=== PATIENT | female | born 1930 | race Caucasian/White ===

== ENCOUNTER 2018-07-07 18:26 | Observation (INO) | payer OTHER, MEDICARE ==
[2018-07-07 22:15] LABS: Absolute Lymphocytes (CBC) 1.3 K/uL (0.7-4.9); Absolute Monocytes 0.6 K/uL (0.1-1.3); Absolute Neutrophil 4.9 K/uL (1.8-8.0); Eosinophils % 1.9 % (0-4.4); Hematocrit 38.8 % (36.0-45.0); Lymphocytes % 18.8 % (15.3-44.8); MPV 8.3 fL (7.6-11.3); RBC Red Blood Cell Count 4.57 M/uL (3.86-4.86)
[2018-07-07 22:21] LABS: Protime INR 1.18
[2018-07-07 22:38] LABS: ALT/SGPT 24 U/L (12-78); AST/SGOT 28 U/L (15-37); Albumin 3.2 g/dL (3.4-5.0); Alkaline Phosphatase 114 U/L (45-117); BUN Blood Urea Nitrogen 19 mg/dL (7-18); Bicarbonate 29 mmol/L (21-32); Bilirubin Direct 0.2 mg/dL (0-0.2); Bilirubin Total 0.7 mg/dL (0.2-1.0); Glucose Level 96 mg/dL (74-106); Lipase 136 U/L (73-393); Magnesium 1.8 mg/dL (1.8-2.4); NT PRO-BNP 373 pg/mL (<450); Potassium 3.8 mmol/L (3.5-5.1); Protein, Total 6.5 g/dL (6.4-8.2); Sodium Level 142 mmol/L (136-145); Troponin (Emerg Dept Use Only) < 0.02 ng/mL (0.0-0.045)
[2018-07-07] MEDS ORDERED: CEFTRIAXONE/SWI 1gm 1 GM/10 ML SYR ONE (22:56)
[2018-07-07 23:09] LABS: Urine Blood TRACE (NEG); Urine Glucose NEGATIVE (NEG); Urine Protein 1+ (NEG); Urine Specific Gravity 1.025 (1.005-1.030); Urine pH 5.5 (5.0-7.0)
--- NOTE | 2018-07-07 23:30 | ER ---
Nurse's Notes [facility] Name: Mila Johnson Age: 87 yrs Sex: Female : 1930 Arrival Date: 07/07/2018 Time: 18:29 Bed 14 Private MD: Elijah Iyer Diagnosis: Essential (primary) hypertension;Dyspnea;Ruucqugkw-exeo-gz-bud lingula;Nausea and vomiting;Cystitis;Congenital hiatus hernia-large Presentation: 07/07 18:34 Presenting complaint: Concerned about home SBP 200. Pt also reports diarrhea yesterday, hb vomit x 1 today, now feels "wore out.". Transition of care: patient was not received from another setting of care. Onset of symptoms was July 07, 2018. Risk Assessment: Do you want to hurt yourself or someone else? Patient reports no desire to harm self or others. Initial Sepsis Screen: Does the patient meet any 2 criteria? No. Patient's initial sepsis screen is negative. Does the patient have a suspected source of infection? No. Patient's initial sepsis screen is negative. Care prior to arrival: None. 18:34 Method Of Arrival: Wheelchair hb 18:34 Acuity: ROSARIO 3 hb Historical: - Allergies: 18:35 PENICILLINS; hb - Immunization history:: Adult Immunizations up to date. - Social history:: Smoking status: Patient/guardian denies using tobacco. - Ebola Screening: : No symptoms or risks identified at this time. - Family history:: not pertinent. Screenin:10 Abuse screen: Denies threats or abuse. Nutritional screening: No deficits noted. jb4 Tuberculosis screening: No symptoms or risk factors identified. Fall Risk None identified. Assessment: 19:10 General: Appears in no apparent distress. comfortable, Behavior is calm, cooperative, jb4 appropriate for age. Pain: Denies pain. Neuro: Level of Consciousness is awake, alert, obeys commands, Oriented to person, place, time, situation. Cardiovascular: Heart tones S1 S2 present Patient's skin is warm and dry. Respiratory: Airway is patent Respiratory effort is even, unlabored, Respiratory pattern is regular, symmetrical, Breath sounds with crackles bilaterally. GI: No signs and/or symptoms were reported involving the gastrointestinal system. : No signs and/or symptoms were reported regarding the genitourinary system. EENT: No signs and/or symptoms were reported regarding the EENT system. Derm: Skin is intact, Skin is pink, warm \\T\\ dry. Musculoskeletal: Circulation, motion, and sensation intact. 20:36 Reassessment: Patient appears in no apparent distress at this time. Patient and/or jb4 family updated on plan of care and expected duration. Pain level reassessed. Patient is alert, oriented x 3, equal unlabored respirations, skin warm/dry/pink. 21:30 Reassessment: Patient appears in no apparent distress at this time. Patient and/or jb4 family updated on plan of care and expected duration. Pain level reassessed. Patient is alert, oriented x 3, equal unlabored respirations, skin warm/dry/pink. 22:30 Reassessment: Patient appears in no apparent distress at this time. Patient and/or jb4 family updated on plan of care and expected duration. Pain level reassessed. Patient is alert, oriented x 3, equal unlabored respirations, skin warm/dry/pink. 23:30 Reassessment: Patient appears in no apparent distress at this time. Patient and/or jb4 family updated on plan of care and expected duration. Pain level reassessed. Patient is alert, oriented x 3, equal unlabored respirations, skin warm/dry/pink. Vital Signs: 18:35 BP 193 / 103; Pulse 64; Resp 16; Temp 97.8(TE); Pulse Ox 97% on R/A; Pain 0/10; hb 19:10 BP 155 / 82; Pulse 74; Resp 22; Pulse Ox 92% on R/A; jb4 20:00 BP 140 / 82; Pulse 76; Resp 24; Pulse Ox 92% on R/A; jb4 21:00 BP 149 / 84; Pulse 78; Resp 24; Pulse Ox 91% on R/A; jb4 22:00 BP 144 / 84; Pulse 88; Resp 25; Pulse Ox 96% on 2 lpm NC; jb4 22:45 BP 124 / 76; Pulse 79; Resp 22; Pulse Ox 98% on 2 lpm NC; jb4 23:45 BP 110 / 67; Pulse 86; Resp 18; Pulse Ox 96% on 2 lpm NC; jb4 07/08 00:30 BP 117 / 68; Pulse 80; Resp 24; Temp 97.8(O); Pulse Ox 94% on 2 lpm NC; jb4 ED Course: 07/07 18:29 Patient arrived in ED. sb2 18:29 Elijah Iyer MD is Private Physician. sb2 18:35 Triage completed. hb 18:35 Arm band placed on left wrist. hb 19:10 Patient has correct armband on for positive identification. Bed in low position. Call jb4 light in reach. Side rails up X 1. cost clerk on. Pulse ox on. NIBP on. 20:18 Tyron Fontanez, KENNETH is Primary Nurse. jb4 21:05 Jordan Trujillo MD is Attending Physician. [facility] 21:27 XRAY Chest (1 view) In Process Unspecified. EDMS 21:44 Inserted saline lock: 20 gauge in right antecubital area, using aseptic technique. tl2 Blood collected. placed by guillermina Stafford. 23:28 Elijah Iyer MD is Hospitalizing Provider. [facility] 23:29 CT Chest Wo Con In Process Unspecified. EDAR 07/08 01:14 No provider procedures requiring assistance completed. Patient admitted, IV remains in jb4 place. Administered Medications: 07/07 22:51 Drug: Rocephin - (cefTRIAXone) 1 grams {Note: Given IVP per pharmacy protocol.} Route: jb4 IVPB; Infused Over: 30 mins; Site: right antecubital; 22:53 Follow up: Response: No adverse reaction; IV Status: Completed infusion [facility] 07/08 00:30 Drug: Pepcid 20 mg Route: IVP; Site: right antecubital; jb4 01:04 Follow up: Response: No adverse reaction jb4 00:51 Not Given (Other Intervention Used): Zithromax 500 mg IVPB once over 1 hrs; mix in 250 jb4 mL NS 00:52 Drug: Zithromax 500 mg Route: PO; jb4 01:04 Follow up: Response: No adverse reaction jb4 Outcome: 07/07 23:29 Decision to Hospitalize by Provider. [facility] 07/08 01:14 Admitted to Tele accompanied by guillermina, via wheelchair, room 408, with oxygen, with jb chart, Report called to KENNETH Martínez Condition: stable Discharge instructions given to patient, family, Instructed on the need for admit, Demonstrated understanding of instructions. 01:17 Patient left the ED. [facility] Signatures: Dispatcher MedHoJordan Neal MD MD cha Baxter, Heather, RN RN Tasha John, RN RN tl2 Tyron Fontanez, KENNETH RN jb4 Toña Waller sb2 Corrections: (The following items were deleted from the chart) 07/07 20:37 19:10 BP 155 / 82; Pulse 74bpm; Resp 16bpm; Pulse Ox 92% RA; jb4 jb4
--- NOTE | 2018-07-07 23:30 | EDPHYS ---
Physician Documentation [facility] Name: Mila Johnson Age: 87 yrs Sex: Female : 1930 Arrival Date: 07/07/2018 Time: 18:29 Bed 14 Private MD: Elijah Iyer ED Physician Jordan Trujillo HPI: 07/07 21:11 This 87 yrs old Female presents to ER via Wheelchair with complaints of High clem Blood Pressure. 21:11 The patient has elevated blood pressure and discovered this at home. Onset: The clem symptoms/episode began/occurred 1 day(s) ago. Modifying factors: The symptoms are aggravated by activity, The symptoms are alleviated by remaining still. Associated signs and symptoms: The patient has no apparent associated signs or symptoms. Severity of symptoms: At its worst the blood pressure was mild. The patient has not experienced similar symptoms in the past. Historical: - Allergies: 18:35 PENICILLINS; hb - Immunization history:: Adult Immunizations up to date. - Social history:: Smoking status: Patient/guardian denies using tobacco. - Ebola Screening: : No symptoms or risks identified at this time. - Family history:: not pertinent. ROS: 21:11 Constitutional: Negative for fever, chills, and weight loss, Eyes: Negative for injury, clem pain, redness, and discharge, ENT: Negative for injury, pain, and discharge, Neck: Negative for injury, pain, and swelling, Cardiovascular: Negative for chest pain, palpitations, and edema, Back: Negative for injury and pain, : Negative for injury, bleeding, discharge, and swelling, MS/Extremity: Negative for injury and deformity, Skin: Negative for injury, rash, and discoloration, Neuro: Negative for headache, weakness, numbness, tingling, and seizure, Psych: Negative for depression, anxiety, suicide ideation, homicidal ideation, and hallucinations, Allergy/Immunology: Negative for hives, rash, and allergies, Endocrine: Negative for neck swelling, polydipsia, polyuria, polyphagia, and marked weight changes, Hematologic/Lymphatic: Negative for swollen nodes, abnormal bleeding, and unusual bruising. 21:11 Respiratory: Positive for cough, shortness of breath, on exertion. 21:11 Abdomen/GI: Positive for nausea and vomiting. Exam: 21:11 Constitutional: This is a well developed, well nourished patient who is awake, alert, clem and in no acute distress. Head/Face: Normocephalic, atraumatic. Eyes: Pupils equal round and reactive to light, extra-ocular motions intact. Lids and lashes normal. Conjunctiva and sclera are non-icteric and not injected. Cornea within normal limits. Periorbital areas with no swelling, redness, or edema. ENT: Nares patent. No nasal discharge, no septal abnormalities noted. Tympanic membranes are normal and external auditory canals are clear. Oropharynx with no redness, swelling, or masses, exudates, or evidence of obstruction, uvula midline. Mucous membranes moist. Neck: Trachea midline, no thyromegaly or masses palpated, and no cervical lymphadenopathy. Supple, full range of motion without nuchal rigidity, or vertebral point tenderness. No Meningismus. Chest/axilla: Normal chest wall appearance and motion. Nontender with no deformity. No lesions are appreciated. Cardiovascular: Regular rate and rhythm with a normal S1 and S2. No gallops, murmurs, or rubs. Normal PMI, no JVD. No pulse deficits. Abdomen/GI: Soft, non-tender, with normal bowel sounds. No distension or tympany. No guarding or rebound. No evidence of tenderness throughout. Back: No spinal tenderness. No costovertebral tenderness. Full range of motion. Female : Normal external genitalia. Skin: Warm, dry with normal turgor. Normal color with no rashes, no lesions, and no evidence of cellulitis. MS/ Extremity: Pulses equal, no cyanosis. Neurovascular intact. Full, normal range of motion. Neuro: Awake and alert, GCS 15, oriented to person, place, time, and situation. Cranial nerves II-XII grossly intact. Motor strength 5/5 in all extremities. Sensory grossly intact. Cerebellar exam normal. Normal gait. Psych: Awake, alert, with orientation to person, place and time. Behavior, mood, and affect are within normal limits. 21:11 Respiratory: the patient does not display signs of respiratory distress, Respirations: normal, Breath sounds: rales, that are mild, are located in both bases. Vital Signs: 18:35 BP 193 / 103; Pulse 64; Resp 16; Temp 97.8(TE); Pulse Ox 97% on R/A; Pain 0/10; hb 19:10 BP 155 / 82; Pulse 74; Resp 22; Pulse Ox 92% on R/A; jb4 20:00 BP 140 / 82; Pulse 76; Resp 24; Pulse Ox 92% on R/A; jb4 21:00 BP 149 / 84; Pulse 78; Resp 24; Pulse Ox 91% on R/A; jb4 22:00 BP 144 / 84; Pulse 88; Resp 25; Pulse Ox 96% on 2 lpm NC; jb4 22:45 BP 124 / 76; Pulse 79; Resp 22; Pulse Ox 98% on 2 lpm NC; jb4 23:45 BP 110 / 67; Pulse 86; Resp 18; Pulse Ox 96% on 2 lpm NC; jb4 07/08 00:30 BP 117 / 68; Pulse 80; Resp 24; Temp 97.8(O); Pulse Ox 94% on 2 lpm NC; jb4 MDM: 07/07 21:05 Patient medically screened. [facility] 21:12 Data reviewed: vital signs, nurses notes, lab test result(s), EKG, radiologic studies, clem plain films. 07/07 21:06 Order name: Basic Metabolic Panel [facility] 07/07 21:06 Order name: CBC with Diff [facility] 07/07 21:06 Order name: LFT's [facility] 07/07 21:06 Order name: Magnesium [facility] 07/07 21:06 Order name: NT PRO-BNP [facility] 07/07 21:06 Order name: PT-INR; Complete Time: 22:32 [facility] 07/07 21:06 Order name: Troponin (emerg Dept Use Only); Complete Time: 22:40 [facility] 07/07 21:06 Order name: Urine Culture [facility] 07/07 21:06 Order name: Basic Metabolic Panel; Complete Time: 22:40 EDMS 07/07 21:06 Order name: CBC with Automated Diff; Complete Time: 22:32 EDMS 07/07 21:06 Order name: Liver (Hepatic) Function; Complete Time: 22:40 EDMS 07/07 21:06 Order name: Magnesium; Complete Time: 22:40 EDMS 07/07 21:06 Order name: NT PRO-BNP; Complete Time: 22:40 EDMS 07/07 21:06 Order name: XRAY Chest (1 view) [facility] 07/07 21:06 Order name: EKG; Complete Time: 21:07 [facility] 02/10 21:06 Order name: Cardiac monitoring; Complete Time: 21:57 [facility] 07/07 21:06 Order name: EKG - Nurse/Tech; Complete Time: 21:57 [facility] 07/07 21:06 Order name: IV Saline Lock; Complete Time: 21:57 [facility] 07/07 21:06 Order name: Labs collected and sent; Complete Time: 21:57 [facility] 07/07 21:06 Order name: O2 Per Protocol; Complete Time: 21:57 [facility] 07/07 21:11 Order name: Blood Culture Adult (2) [facility] 07/07 21:11 Order name: Procalcitonin; Complete Time: 23:24 [facility] 07/07 22:10 Order name: Lipase; Complete Time: 22:40 EDMS 07/07 22:33 Order name: CT Chest Wo Con [facility] 07/07 22:57 Order name: Urine Dipstick--Ancillary (enter results); Complete Time: 23:24 ar5 07/07 21:06 Order name: O2 Sat Monitoring; Complete Time: 21:57 [facility] 07/07 21:06 Order name: Urine Dipstick-Ancillary (obtain specimen); Complete Time: 22:42 [facility] Administered Medications: 22:51 Drug: Rocephin - (cefTRIAXone) 1 grams {Note: Given IVP per pharmacy protocol.} Route: jb4 IVPB; Infused Over: 30 mins; Site: right antecubital; 22:53 Follow up: Response: No adverse reaction; IV Status: Completed infusion 4 07/08 00:30 Drug: Pepcid 20 mg Route: IVP; Site: right antecubital; jb4 01:04 Follow up: Response: No adverse reaction jb4 00:51 Not Given (Other Intervention Used): Zithromax 500 mg IVPB once over 1 hrs; mix in 250 jb4 mL NS 00:52 Drug: Zithromax 500 mg Route: PO; jb4 01:04 Follow up: Response: No adverse reaction 4 Disposition: 07/07/18 23:29 Hospitalization ordered by Elijah Iyer for Observation. Preliminary diagnosis are Essential (primary) hypertension, Dyspnea, Hypoxemia - tree-in-bud lingula, Nausea and vomiting, Cystitis, Congenital hiatus hernia - large. - Bed requested for Telemetry/MedSurg (observation). - Status is Observation. jb4 - Condition is Fair. - Problem is new. - Symptoms have improved. UTI on Admission? Yes Signatures: Dispatcher [employer] [facility] Sarah Holm, RN Jordan Broussard MD MD cha Baxter, Heather, RN Tyron Welch RN RN jb4 Corrections: (The following items were deleted from the chart) 07/07 22:10 21:11 LIPASE+C.LAB.BRZ ordered. EDMD EDMD 23:45 23:29 Hospitalization Ordered by Elijah Iyer MD for Observation. Preliminary diagnosis kl is Essential (primary) hypertension; Dyspnea; Hypoxemia; Nausea and vomiting; Cystitis. Bed requested for Telemetry/MedSurg (observation). Status is Observation. Condition is Fair. Problem is new. Symptoms have improved. UTI on Admission? Yes. clem 07/08 00:16 02 23:45 07/07/2018 23:29 Hospitalization Ordered by Elijah Iyer MD for Observation. clem Preliminary diagnosis is Essential (primary) hypertension; Dyspnea; Hypoxemia; Nausea and vomiting; Cystitis. Bed requested for Telemetry/MedSurg (observation). Status is Observation. Condition is Fair. Problem is new. Symptoms have improved. UTI on Admission? Yes. brianna 07/08 01:17 00:16 07/07/2018 23:29 Hospitalization Ordered by Elijah Iyer MD for Observation. jb4 Preliminary diagnosis is Essential (primary) hypertension; Dyspnea; Hypoxemia - tree-in-bud lingula; Nausea and vomiting; Cystitis; Congenital hiatus hernia - large. Bed requested for Telemetry/MedSurg (observation). Status is Observation. Condition is Fair. Problem is new. Symptoms have improved. UTI on Admission? Yes. clem
[2018-07-08] MEDS ORDERED: FAMOTIDINE 20 MG/2 ML VIAL IV ONE (00:36)
[2018-07-08] MEDS ORDERED: AZITHROMYCIN 250 MG TAB ONE (00:59)
[2018-07-08] MEDS ORDERED: ACETAMINOPHEN 500 MG TAB PO PRN (01:35)
[2018-07-08] MEDS ORDERED: ONDANSETRON 4 MG/2 ML VIAL IV PRN (01:35)
[2018-07-08 02:28] VITALS: BMI 22.7
[2018-07-08 05:24] LABS: Absolute Lymphocytes (CBC) 1.2 K/uL (0.7-4.9); Absolute Monocytes 0.5 K/uL (0.1-1.3); Basophils % 0.8 % (0-1.3); Eosinophils % 2.7 % (0-4.4); Hematocrit 35.3 % (36.0-45.0); Lymphocytes % 24.1 % (15.3-44.8); MPV 9.5 fL (7.6-11.3); Monocytes % 10.7 % (3.3-12.3); RBC Red Blood Cell Count 4.19 M/uL (3.86-4.86)
[2018-07-08 05:29] LABS: Potassium 3.8 mmol/L (3.5-5.1)
--- NOTE | 2018-07-08 06:53 | RAD REPORT ---
EXAM DESCRIPTION: RAD - Chest Single View - 07/08/2018 6:01 am CLINICAL HISTORY: Chest pain COMPARISON: CT chest July 07, portable chest July 07 TECHNIQUE: AP portable chest image was obtained 0555 hours . FINDINGS: Lungs are underinflated similar comparison. Large mass density retrocardiac left base is k nown hiatal hernia. Interstitial markings are stable. No new or progressive lung parenchymal process. Heart and vasculature are normal. No measurable pleural effusion and no pneumothorax. No acute bony abnormality seen. No acute aortic findings suspected. IMPRESSION: Stable chest examination from prior day.
--- NOTE | 2018-07-08 07:21 | EKG ---
Test Date: 2018-07-07 Test Time: 21:13:56 Activities Counselor: BRIA MEASUREMENT RESULTS: Intervals: Rate: 75 RI: 192 QRSD: 80 QT: 398 QTc: 444 [place]: P: 58 RI: 192 QRS: 42 T: 61 INTERPRETIVE STATEMENTS: Normal sinus rhythm Normal ECG Compared to ECG 10/09/2012 19:34:52 Sinus tachycardia no longer present Atrial premature complex(es) no longer present ST (T wave) deviation no longer present Electronically Signed On 07-08-18 07:20:36 FUEL RETROFITTING TECHNICIAN by Osvaldo Vinson
--- NOTE | 2018-07-08 08:18 | RAD REPORT ---
EXAM DESCRIPTION: RAD - Chest Single View - 07/07/2018 9:26 pm CLINICAL HISTORY: Cough, hypertension COMPARISON: January 2015 TECHNIQUE: AP portable chest image was obtained 3 hours . FINDINGS: Lung volumes are low. Large hiatal hernia fills the retrocardiac medial left base. Interst itial markings are prominent but not clearly different from prior study. This shallow inspiration cou ld potentially mask earliest stages of an interstitial edema or infiltrate. Heart and vasculature are normal. No measurable pleural effusion and no pneumothorax. No acute bony abnormality seen. No acute aortic findings suspected. IMPRESSION: Shallow inspiration film showing chronic interstitial lung disease. This could potential ly mask early infiltrates.
[2018-07-08 08:53] LABS: Folic Acid, (Folate) > 20.0 ng/mL (3.1-17.5)
[2018-07-08] MEDS: CEFTRIAXONE/SWI 1gm 1 GM/10 ML SYR IV SCH ×3 (09:00→20:47)
[2018-07-08] MEDS ORDERED: CEFTRIAXONE 1 GM/NS 50 ML 1 GM/50 ML BAG IV SCH (09:00)
[2018-07-08] MEDS: METOPROLOL TAR 25 MG TAB PO SCH (10:42)
[2018-07-08] MEDS: FERROUS SULFATE 325 MG TAB PO SCH (10:43)
[2018-07-08] MEDS: CODEINE 30MG/APAP 300MG TAB PO SCH (10:43)
[2018-07-08] MEDS: SERTRALINE HCL 100 MG TAB PO SCH (10:44)
[2018-07-08] MEDS: ASPIRIN EC 81 MG TAB PO SCH (10:44)
[2018-07-08] MEDS: PANTOPRAZOLE 40MG TABLET PO SCH (10:44)
--- NOTE | 2018-07-08 17:27 | EKG ---
Test Date: 2018-07-08 Test Time: 10:07:31 Respiratory Assistant: [place] MEASUREMENT RESULTS: Intervals: Rate: 73 VA: 190 QRSD: 80 QT: 408 QTc: 449 [place]: P: 58 VA: 190 QRS: 16 T: 34 INTERPRETIVE STATEMENTS: Normal sinus rhythm Normal ECG Compared to ECG 07/07/2018 21:13:56 No significant changes Electronically Signed On 07-08-18 17:26:42 SEED MILL SUPERINTENDENT by Osvaldo Vinson
[2018-07-08] MEDS ORDERED: CEFTRIAXONE/SWI 1gm 1 GM/10 ML SYR IV SCH (21:00)
--- NOTE | 2018-07-09 03:35 | HP ---
Date of Admission: 07/08/2018 Chief Complaint: Nausea. History Of Present Illness: This is an 87-year-old female patient who came in to emergency room with complaints of nausea. She had some associated vomiting. Denies any fever or chills. Has some disc omfort in the suprapubic area that she reported with some burning on urination. After she came in to emergency room, she was evaluated and admitted to the hospital with urinary tract infection. Allergies: TO PENICILLIN AND TRAMADOL. Medications: List reviewed. Review of Systems: Gastrointestinal: As mentioned above. Genitourinary: As mentioned above. All other systems are reviewed and negative. Social History: Negative for smoking and alcohol use. Family History: Significant for mother had lymphoma. Brother and father had ataxia. Past Surgical History: Significant for cataract surgery, cholecystectomy, left-sided mastectomy in 2 010 for breast cancer, tonsillectomy, hip replacement in 1998, and cholecystectomy in 1996. Past Medical History: Significant for hypertension, hyperlipidemia, breast cancer, osteoarthritis, d epression, and iron-deficiency anemia. Physical Examination: Vital Signs: Temperature 97.1, pulse 79, respiratory rate 20, blood pressure 145/64, oxygen saturati on 93%, height 5 feet 7 inches, and weight 145 pounds. General: Awake, alert, oriented, not in distress. HEENT: Head atraumatic, normocephalic. Conjunctivae nonerythematous. Sclerae white. Mouth, no thr ush or edema noted. Ears/Nose, no mass, lesion, discharge noted. Neck: Supple. No JVD, lymph nodes, bruit, thyromegaly noted. Lungs: Bilateral good equal air entry. Clear to auscultation. No rhonchi. No rales. Heart: Normal heart sounds, no murmur or gallop. Abdomen: Soft, bowel sounds normal. No guarding, rigidity, tenderness, mass, hepatosplenomegaly, dis tention, or bruit noted. Extremities: No leg edema. No calf tenderness. Skin: No rash, ulcer, cellulitis. Lymphatics: No lymph node enlargement in neck, supraclavicular, infraclavicular region. Neuro: No focal neurological deficit. Chest: Unremarkable. External Genitalia: Deferred. Rectal: Deferred. Laboratory Data: Yesterday, white count 7, hemoglobin 12.8, and platelets 116. This morning, white count 4.9, hemoglobin 11.9, and platelets 115. Yesterday, sodium 142, potassium 3.8, chloride 106, b icarb 29, BUN 19, creatinine 0.70, and glucose 96. Liver function tests unremarkable. Troponin less than 0.02. Procalcitonin less than 0.05. This morning, sodium 142, potassium 3.8, chloride 107, bi carb 30, BUN 20, creatinine 0.76, and glucose 93. Urinalysis positive for nitrite, leukocyte esteras e 3+, and 1+ protein. CAT scan results reviewed. Impression: 1.Urinary tract infection. 2.Thrombocytopenia. 3.Iron-deficiency anemia. 4.Hypertension. 5.Hyperlipidemia. 6.Breast cancer. 7.Osteoarthritis, multiple sites. 8.Depression. Plan: Admit the patient to hospital for further evaluation and management of this problem. The stanislav ent is appropriate for inpatient and is expected to spend 2 midnights in the hospital. We will sohail nue IV antibiotic which is ceftriaxone, follow up on urine culture, and decide about culture-specific antibiotic once the final result is available. We will get B12 and folic acid level checked and con tinue home medications per order. SCD was ordered for DVT prophylaxis. Fall precautions were ordered. Plan of treatment was discussed with her. I will see h er tomorrow for followup. TOBIAS/KEZIA Voice ID: [id number]
[2018-07-09] MEDS: CODEINE 30MG/APAP 300MG TAB PO SCH (09:00)
[2018-07-09] MEDS: CEFTRIAXONE/SWI 1gm 1 GM/10 ML SYR IV SCH (09:11)
[2018-07-09] MEDS: FERROUS SULFATE 325 MG TAB PO SCH (09:11)
[2018-07-09] MEDS: SERTRALINE HCL 100 MG TAB PO SCH (09:12)
[2018-07-09] MEDS: PANTOPRAZOLE 40MG TABLET PO SCH (09:12)
[2018-07-09] MEDS: ASPIRIN EC 81 MG TAB PO SCH (09:13)
[2018-07-09] MEDS: METOPROLOL TAR 25 MG TAB PO SCH (09:13)
[2018-07-09 10:23] VITALS: O2SAT 94
--- NOTE | 2018-07-09 12:04 | RAD REPORT ---
EXAM DESCRIPTION: CT - Thorax Wo Con - 07/08/2018 2:10 am CLINICAL HISTORY: The patient is 87 years old and is Female; inf vs mass vs hh COMPARISON: None. TECHNIQUE: Axial computed tomography images of the chest without intravenous contrast. Sagittal and coronal refo rmatted images were created and reviewed. This CT exam was performed using one or more of the followi ng dose reduction techniques: Automated exposure control, adjustment of the mA and/or kV according to patient size, and/or use of iterative reconstruction technique. FINDINGS: LUNGS: Unremarkable. No mass. No consolidation. PLEURAL SPACE: Tree-in-bud opacity in the lingula (series 201, image 28). No consolidation, pleural e ffusion or pneumothorax HEART: Heart is normal in size. No pericardial effusion. THYROID: 9 mm left thyroid nodule posteriorly. BONES/JOINTS: Advanced diffuse osteopenia. Multilevel degenerative disc disease and reactive endplate changes. No acute fracture. No dislocation. SOFT TISSUES: Surgical clips are seen in the left axilla. 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 Mural calcifications of the aortic arch. LYMPH NODES: No mediastinal or hilar lymphadenopathy. LIVER: 1.3 cm simple appearing left hepatic hypodensity, likely cyst. GALLBLADDER AND JORGE DUCTS: Prior cholecystectomy. INTRAPERITONEAL SPACE: Large fluid-filled hiatal hernia. OTHER FINDINGS: The visualized abdomen demonstrates no acute abnormality. IMPRESSION: 1. No acute intrathoracic abnormality. 2. Ectatic dilatation of the ascending aorta measuring up to 3.9 cm. 3. Trace tree-in-bud opacities in the lingula, nonspecific small airway disease. Follow-up is recomme nded. 4. Large hiatal hernia with superior migration of the entire stomach including pylorus. 5. Advanced diffuse osteopenia and degenerative disc disease. 6. Left axillary postsurgical changes. 7. 1.3 cm left hepatic cyst. 8. 9 mm left thyroid nodule. No follow-up is clinically warranted given patient age. Reference: J Am Maria L Radiol 2015 Jun;12(2): 143-50 Electronically signed by Jason Bernabe DO 07/07/2018 11:40 PM FORESTRY TECHNICAL OFFICER Due to temporary technical issues with the PACS/Fluency reporting system, reports are being signed by the in house radiologist as a courtesy to ensure prompt reporting. The interpreting radiologist is f ully responsible for the content of the report.
[2018-07-09 12:11] VITALS: BP 104/52; TEMP 97.9
--- NOTE | 2018-07-10 06:27 | DS ---
Date of Discharge: 07/09/2018 Disposition: Discharged to go home. Physical Examination: HEENT: Unremarkable. Lungs: Clear to auscultation. No rhonchi. No rales. Heart: Sounds normal. Abdomen: Soft. Bowel sounds normal. No guarding, rigidity, tenderness, distention. Extremities: No leg edema. Discharge Medications And Instructions: 1.Continue all prior home medications. 2.Take Bactrim DS 1 tablet twice a day for 1 week. 3.Follow up at my office per scheduled appointment. Hospital Course: An 87-year-old female patient who came into emergency room, and after she was evalu ated, she was admitted to the hospital with urinary tract infection problem. Please see dictated H a nd P for more information. Her initial white count was 7, hemoglobin 12.8, platelets 116. Repeat ite count 4.9, hemoglobin 11.9, platelets 115. Her urinalysis was abnormal consistent with urinary t ract infection, but urine culture final results came back today more than 100,000 mixed aron. Chemi stry was unremarkable. Troponin less than 0.02. Procalcitonin less than 0.05. The patient was give n IV antibiotic, which was ceftriaxone, and today after final report on the urine culture came back, she was discharged to go home in stable condition. Final Diagnoses: 1.Urinary tract infection. 2.Anemia, iron deficiency anemia. 3.Hypertension. 4.Hyperlipidemia. 5.Osteoarthritis, multiple sites. 6.Left breast cancer. TOBIAS/MODL Voice ID: [id number] Report ID: [id number]
== END 2018-07-09 13:56 | disposition home or self-care (01) ==
LOC: ER 18:26 → ERHOLD 23:33 → 4TH 07-08 01:02
PROVIDERS: ADMIT Internal Medicine; ATTEND Internal Medicine
DX: N39.0 Urinary tract infection, site not specified (principal); D50.9 Iron deficiency anemia, unspecified; I10 Essential (primary) hypertension; E78.5 Hyperlipidemia, unspecified; M19.90 Unspecified osteoarthritis, unspecified site; Z88.0 Allergy status to penicillin; Z85.3 Personal history of malignant neoplasm of breast
CPT/HCPCS: 36415; 71045 ×2; 71250; 80048 ×2; 80076; 81003; 82607; 82746; 83690; 83735; 83880; 84145; 84484 ×3; 85025 ×2; 85610; 87040 ×2; 87086; 87088; 93005 ×2; 96374; 96375; 99285; G0378 ×2; J0696 ×4

== ENCOUNTER 2018-11-11 11:29 | Observation (INO) | payer OTHER, MEDICARE ==
--- NOTE | 2018-11-11 12:36 | EKG ---
Test Date: 2018-11-11 Test Time: 11:42:44 Qa Consultant: ALFIE MEASUREMENT RESULTS: Intervals: Rate: 85 AK: 178 QRSD: 82 QT: 372 QTc: 442 [place]: P: 59 AK: 178 QRS: 95 T: 80 INTERPRETIVE STATEMENTS: Normal sinus rhythm Rightward axis Possible Anterior infarct, age undetermined Abnormal ECG Compared to ECG 07/08/2018 10:07:31 Right-axis deviation now present Myocardial infarct finding now present Electronically Signed On 11-11-18 12:35:57 CDT by Osvaldo Vinson
[2018-11-11 12:39] LABS: Absolute Lymphocytes (CBC) 0.8 K/uL (0.7-4.9); Basophils % 0.8 % (0-1.3); Eosinophils % 0.7 % (0-4.4); Hematocrit 36.7 % (36.0-45.0); Lymphocytes % 14.5 % (15.3-44.8); MPV 8.7 fL (7.6-11.3); Monocytes % 10.4 % (3.3-12.3)
[2018-11-11 12:47] LABS: Protime INR 1.12
[2018-11-11] MEDS ORDERED: ACETAMINOPHEN 500 MG TAB ONE (12:50)
--- NOTE | 2018-11-11 12:59 | RAD REPORT ---
EXAM DESCRIPTION: CT - CTHCSPWOC - 11/11/2018 12:49 pm CLINICAL HISTORY: Trauma, head and neck injury. fall, AMS COMPARISON: No comparisons TECHNIQUE: Axial 5 mm thick images of the head were obtained. Axial 2 mm thick images of the cervical spine were obtained with sagittal and coronal reconstruction images generated and reviewed. All CT scans are performed using dose optimization technique as appropriate and may include automated exposure control or mA/KV adjustment according to patient size. FINDINGS: CT HEAD WITHOUT CONTRAST: No acute hemorrhage, hydrocephalus or extra-axial collection is identified.Advanced generalized brain atrophy is present with mild periventricular and deep white matter chronic microvascular ischemic ch anges.No areas of brain edema or midline shift. The paranasal sinuses and mastoids are clear.The calvarium is intact. CT CERVICAL SPINE WITHOUT CONTRAST: No fracture or subluxation.2 mm degenerative anterolisthesis of C4 on 5. Prominent facet arthrosis is noted involving the lower cervical levels.No prevertebral soft tissues swelling is identified. IMPRESSION: No acute intracranial or cervical spine findings. Moderate lower cervical degenerative changes.
[2018-11-11 13:17] LABS: ALT/SGPT 405 U/L (12-78); Albumin 3.3 g/dL (3.4-5.0); Alkaline Phosphatase 245 U/L (45-117); BUN Blood Urea Nitrogen 16 mg/dL (7-18); Bicarbonate 32 mmol/L (21-32); Bilirubin Direct 0.6 mg/dL (0-0.2); Bilirubin Total 1.1 mg/dL (0.2-1.0); Glucose Level 113 mg/dL (74-106); Magnesium 2.1 mg/dL (1.8-2.4); NT PRO-BNP 750 pg/mL (<450); Protein, Total 6.6 g/dL (6.4-8.2); Sodium Level 137 mmol/L (136-145); Troponin (Emerg Dept Use Only) < 0.02 ng/mL (0.0-0.045)
[2018-11-11 13:21] LABS: AST/SGOT 473 U/L (15-37)
--- NOTE | 2018-11-11 13:28 | RAD REPORT ---
EXAM DESCRIPTION: RAD - Humerus Right - 11/11/2018 1:08 pm CLINICAL HISTORY: Right arm pain FINDINGS: Mildly displaced fracture involves the right humeral neck. Fracture appears to extend int o the right humeral head. Osteoporosis
--- NOTE | 2018-11-11 13:29 | RAD REPORT ---
EXAM DESCRIPTION: RAD - Pelvis - 11/11/2018 1:07 pm CLINICAL HISTORY: Pelvic pain FINDINGS: No fracture or dislocation is seen. Osteoporosis Right hip arthroplasty has been performed. The acetabular component of the prosthesis has an almost c ompletely vertical orientation with respect to the right.
--- NOTE | 2018-11-11 13:30 | RAD REPORT ---
EXAM DESCRIPTION: Teresa Single View11/11/2018 1:08 pm CLINICAL HISTORY: Chest pain COMPARISON: June 2018 FINDINGS: The lungs appear clear of acute infiltrate. The heart is normal size. The right humeral f racture is again demonstrated
--- NOTE | 2018-11-11 14:05 | RAD REPORT ---
EXAM DESCRIPTION: CT - Abdomen Pelvis Wo Contrast - 11/11/2018 1:48 pm CLINICAL HISTORY: Abdominal pain COMPARISON: 2014 TECHNIQUE: Computed axial tomography of the abdomen and pelvis was obtained. IV and oral contrast we re not requested. All CT scans are performed using dose optimization technique as appropriate and may include automated exposure control or mA/KV adjustment according to patient size. FINDINGS: The evaluation of solid organs, vessels and bowel is limited secondary to the lack of con trast administration. Moderate hiatal hernia Small hepatic cysts. Spleen measures 14 centimeters. Cholecystectomy. Prominence of the biliary tree is unchanged. Left renal cyst Adrenals and right kidney grossly normal Pancreas grossly normal Diverticulosis without evidence of diverticulitis. Air within the bladder may secondary to recent ins trumentation Spondylosis involves lumbar spine resulting in spinal stenosis IMPRESSION: No acute abnormality is displayed.
--- NOTE | 2018-11-11 14:28 | RAD REPORT ---
EXAM DESCRIPTION: US - Abdomen Exam Limited - 11/11/2018 2:11 pm CLINICAL HISTORY: Abdominal pain. COMPARISON: 2015 FINDINGS: Cholecystectomy. Common bile duct measures 14 millimeters and is unchanged in caliber from the prior exam Hepatopetal flow. Small hepatic cysts. Normal hepatic echotexture IMPRESSION: Cholecystectomy Stable dilatation of the common bile duct may be physiologic in this elderly patient status post chol ecystectomy. If the patient has clinical symptoms/abnormal liver function test enzymes to suggest litzy iary pathology then MRCP would be recommended
--- NOTE | 2018-11-11 15:15 | EDPHYS ---
Physician Documentation [facility] Name: Mila Johnson Age: 87 yrs Sex: Female : 1930 Arrival Date: 11/11/2018 Time: 11:33 Bed 4 Private MD: Elijah Iyer ED Physician Yash Lopez HPI: 11/11 14:19 This 87 yrs old Female presents to ER via Wheelchair with complaints of Arm wa Pain, Chest Pain. 14:19 The patient or guardian complains of pain, that is acute, bruising. The complaints wa affect the right bicep and right tricep. Context: The problem was sustained at an unknown location, resulted from unknown cause, per pt's daughter, noted R upper arm pain and discoloration x 2 days. also states pt a bit more somnolent that usual. takes trazodone for sleep however. pt denies chest pain or SOB to me, c/o R upper arm pain. Onset: The symptoms/episode began/occurred 2 day(s) ago. Treatment prior to arrival includes: no previous treatment. Modifying factors: The symptoms are alleviated by nothing. the symptoms are aggravated by movement. Associated signs and symptoms: Pertinent positives: erythema, pain, swelling, warmth, of the right upper arm, Pertinent negatives: decreased range of motion, fever, numbness, tingling. Severity of symptoms: At their worst the symptoms were moderate, in the emergency department the symptoms are unchanged. The patient has not experienced similar symptoms in the past. The patient has not recently seen a physician. Historical: - Allergies: 11:40 PENICILLINS; bp - Home Meds: 11:40 Unable to obtain [Active]; bp - PMHx: 11:40 ATOXIA; Hypertension; bp - Immunization history:: Adult Immunizations up to date. - Social history:: Smoking status: Patient/guardian denies using tobacco. - Ebola Screening: : No symptoms or risks identified at this time. - Family history:: not pertinent. - Hospitalizations: : No recent hospitalization is reported. ROS: 14:42 Constitutional: Negative for fever, chills, and weight loss, Eyes: Negative for injury, wa pain, redness, and discharge, ENT: Negative for injury, pain, and discharge, Neck: Negative for injury, pain, and swelling, Respiratory: Negative for shortness of breath, cough, wheezing, and pleuritic chest pain, Abdomen/GI: Negative for abdominal pain, nausea, vomiting, diarrhea, and constipation, Back: Negative for injury and pain, : Negative for injury, bleeding, discharge, and swelling. 14:42 Cardiovascular: Positive for chest pain, Negative for edema, orthopnea. 14:42 Respiratory: Negative for shortness of breath. 14:42 MS/extremity: Positive for ecchymosis, pain, tenderness, of the right bicep and right tricep. 14:43 Neuro: Positive for altered mental status, somnolence. wa 14:43 All other systems are negative. Exam: 14:44 Head/Face: Normocephalic, atraumatic. Eyes: Pupils equal round and reactive to light, wa extra-ocular motions intact. Lids and lashes normal. Conjunctiva and sclera are non-icteric and not injected. Cornea within normal limits. Periorbital areas with no swelling, redness, or edema. Neck: Trachea midline, no thyromegaly or masses palpated, and no cervical lymphadenopathy. Supple, full range of motion without nuchal rigidity, or vertebral point tenderness. No Meningismus. Chest/axilla: Normal chest wall appearance and motion. Nontender with no deformity. No lesions are appreciated. Cardiovascular: Regular rate and rhythm with a normal S1 and S2. No gallops, murmurs, or rubs. Normal PMI, no JVD. No pulse deficits. Respiratory: Lungs have equal breath sounds bilaterally, clear to auscultation and percussion. No rales, rhonchi or wheezes noted. No increased work of breathing, no retractions or nasal flaring. Abdomen/GI: Soft, non-tender, with normal bowel sounds. No distension or tympany. No guarding or rebound. No evidence of tenderness throughout. Back: No spinal tenderness. No costovertebral tenderness. Full range of motion. 14:44 Constitutional: The patient appears mildly drowsy but answers questions appropriately. 14:44 ENT: Mouth: Oral mucosa: dry. 14:44 Musculoskeletal/extremity: Extremities: grossly normal except: noted in the right bicep and right tricep: ecchymosis, pain, tenderness. 14:44 Skin: injury, deep bruise noted R upper arm. tender to palp. no deformity. Vital Signs: 11:40 BP 107 / 65; Pulse 86; Resp 14; Temp 97; Pulse Ox 88% on R/A; Weight 54.43 kg; bp 13:16 BP 131 / 89; Pulse 78; Resp 14; Pulse Ox 92% on 2 lpm NC; tw2 14:23 BP 109 / 65; Pulse 76; Resp 17; Pulse Ox 96% on 2 lpm NC; tw2 16:38 BP 109 / 63; Pulse 73; Resp 20; Pulse Ox 98% on 2 lpm NC; tw2 17:21 BP 106 / 60; Pulse 68; Resp 19; Pulse Ox 96% on 2 lpm NC; tw2 Procedures: 15:09 Performed RUE sling placement: Sling place R upper extremity. post placement distally wa neurovasc intact. pt tolerated well. MDM: 12:06 Patient medically screened. wa 14:46 Differential diagnosis: r/o infection process. consider trauma. wa 14:49 Data reviewed: vital signs, nurses notes. Test interpretation: by ED physician or ne midlevel provider: EKG: interp by me: HR 85. Rightward axis. no concerning acutely ischemic-appearing changes noted QT nml. interval wnl. 14:51 Test interpretation: by ED physician or midlevel provider: labs: noted elevated AST, wa ALT, Alk Phos, at 473, 405, 245 respectively. 14:52 Test interpretation: by ED physician or midlevel provider: CXR: no acute process. ne pelvic x-ray: no acute process. CT head and c-spine: no acute process. CT abd/pelvis, RUQ US: common ductal dilatation at 14 mm. unchanged from 2015. . Response to treatment: the patient's symptoms have mildly improved after treatment, placed in sling. awaiting UA to r/o UTI. 15:00 Test interpretation: by ED physician or midlevel provider: R humerus: mild displaced R wa humeral head fx. 15:08 ED course: very levated liver enzymes with nml bili. consider parenchymal disease. ne meds? will admit. 16:07 Test interpretation: by ED physician or midlevel provider: noted TNTC wbc consistent ne with UTI. 16:34 Physician consultation: Elijah Iyer MD he advised in-pt admit. and consult Dr. magdiel Chung for humeral fx. He tells me LFT elevation is acute as labs on 11/06/18 depicted nml LFTs. Admission orders: after a detailed discussion of the patient's condition and case, the admit orders are written by me. 11/11 12:15 Order name: Basic Metabolic Panel; Complete Time: 13:44 ne 11/11 12:15 Order name: CBC with Diff; Complete Time: 13:44 ne 11/11 12:15 Order name: LFT's; Complete Time: 13:44 ne 11/11 12:15 Order name: Magnesium; Complete Time: 13:44 ne 11/11 12:15 Order name: NT PRO-BNP; Complete Time: 13:44 ne 11/11 12:15 Order name: PT-INR; Complete Time: 13:44 ne 11/11 12:15 Order name: Troponin (emerg Dept Use Only); Complete Time: 13:44 ne 11/11 12:15 Order name: Creatinine for Radiology; Complete Time: 13:44 ne 11/11 12:16 Order name: UDS ne 11/11 12:17 Order name: Urine Microscopic Only; Complete Time: 16:08 ne 11/11 15:15 Order name: Urine Dipstick--Ancillary (enter results); Complete Time: 15:39 11/11 15:52 Order name: Urine Culture [facility] 11/11 17:09 Order name: Basic Metabolic Panel [facility] 11/11 12:01 Order name: EKG; Complete Time: 12:04 [facility] 11/11 12:15 Order name: XRAY Chest (1 view); Complete Time: 13:43 ne 11/11 12:15 Order name: XRAY Pelvis; Complete Time: 13:43 ne 11/11 12:15 Order name: CT Head C Spine; Complete Time: 13:43 ne 11/11 12:17 Order name: Humerus Right XRAY; Complete Time: 13:43 ne 11/11 13:27 Order name: US Abdomen Limited; Complete Time: 14:48 ne 11/11 13:27 Order name: CT Abd/Pelvis - Without Contrast; Complete Time: 14:47 ne 11/11 17:09 Order name: Basic Metabolic Panel EDME 11/11 17:10 Order name: CBC with Automated Diff EDMS 11/11 17:10 Order name: CBC with Automated Diff EDMS 11/11 17:10 Order name: Lipase EDMS 11/11 17:10 Order name: Lipase EDMS 11/11 12:01 Order name: EKG - Nurse/Tech; Complete Time: 12:03 tw2 11/11 12:15 Order name: Cardiac monitoring; Complete Time: 12:32 ne 11/11 12:15 Order name: IV Saline Lock; Complete Time: 12:33 11/11 12:15 Order name: Labs collected and sent; Complete Time: 12:33 11/11 12:15 Order name: O2 Per Protocol; Complete Time: 12:32 11/11 12:15 Order name: O2 Sat Monitoring; Complete Time: 12:32 11/11 12:17 Order name: Urine Dipstick-Ancillary (obtain specimen); Complete Time: 15:21 11/11 14:47 Order name: Sling; Complete Time: 15:21 11/11 14:59 Order name: Straight Cath - Urine; Complete Time: 15:21 tw2 11/11 17:10 Order name: NPO EDMS Administered Medications: 12:38 Drug: Tylenol 1000 mg Route: PO; tw2 13:29 Follow up: Response: No adverse reaction; Pain is decreased tw2 15:49 CANCELLED (IVP available only): Rocephin - (cefTRIAXone) 1 grams IVPB once over 30 tw2 mins; (mix in 50 mL NS) 15:55 Drug: Rocephin 1 grams Route: IV; Rate: bolus; Site: left forearm; tw2 16:00 Follow up: Response: No adverse reaction; IV Status: Completed infusion tw2 Disposition: 11/11/18 15:14 Hospitalization ordered by Elijah Iyer for Inpatient Admission. Preliminary diagnosis are Acute Altered Mental Status, Elevated liver enzymes, Acute Right Humeral neck Fracture, Acute Urinary Tract Infection. - Bed requested for Telemetry/MedSurg (observation). - Status is Inpatient Admission. tw2 - Condition is Stable. - Problem is new. - Symptoms have improved. UTI on Admission? Yes Signatures: Dispatcher [employer] EDME Maryan Elam Tara, RN RN tw2 Yash Lopez MD MD wa Peltier, Brian, RN RN bp Corrections: (The following items were deleted from the chart) 14:46 12:18 TYPE AND SCREEN+[id number] ordered. EDME EDME 15:49 15:41 Rocephin - (cefTRIAXone) 1 grams IVPB once over 30 mins; (mix in 50 mL NS) tw2 ordered. ne 16:08 15:14 Hospitalization Ordered by Elijah Iyer MD for Inpatient Admission. Preliminary ne diagnosis is Acute Altered Mental Status; Elevated liver enzymes; Acute Right Humeral neck Fracture. Bed requested for Telemetry/MedSurg (observation). Status is Inpatient Admission. Condition is Stable. Problem is new. Symptoms have improved. UTI on Admission? No. ne 16:08 16:08 11/11/2018 15:14 Hospitalization Ordered by Elijah Iyer MD for Inpatient ne Admission. Preliminary diagnosis is Acute Altered Mental Status; Elevated liver enzymes; Acute Right Humeral neck Fracture; Acute Urinary Tract Infection. Bed requested for Telemetry/MedSurg (observation). Status is Inpatient Admission. Condition is Stable. Problem is new. Symptoms have improved. UTI on Admission? Yes. ne 17:17 16:08 11/11/2018 15:14 Hospitalization Ordered by Elijah Iyer MD for Inpatient Admission. Preliminary diagnosis is Acute Altered Mental Status; Elevated liver enzymes; Acute Right Humeral neck Fracture; Acute Urinary Tract Infection. Bed requested for Telemetry/MedSurg (observation). Status is Inpatient Admission. Condition is Stable. Problem is new. Symptoms have improved. UTI on Admission? Yes. ne 17:46 17:17 11/11/2018 15:14 Hospitalization Ordered by Elijah Iyer MD for Inpatient tw2 Admission. Preliminary diagnosis is Acute Altered Mental Status; Elevated liver enzymes; Acute Right Humeral neck Fracture; Acute Urinary Tract Infection. Bed requested for Telemetry/MedSurg (observation). Status is Inpatient Admission. Condition is Stable. Problem is new. Symptoms have improved. UTI on Admission? Yes. bd
--- NOTE | 2018-11-11 15:15 | ER ---
Nurse's Notes [facility] Name: Mila Johnson Age: 87 yrs Sex: Female : 1930 Arrival Date: 11/11/2018 Time: 11:33 Bed 4 Private MD: Elijah Iyer Diagnosis: Acute Altered Mental Status;Elevated liver enzymes;Acute Right Humeral neck Fracture;Acute Urinary Tract Infection Presentation: 11/11 11:43 Presenting complaint: Patient states: R HUMERUS BRUISING, UNKNOWN CAUSE OR TIME. bp Transition of care: patient was not received from another setting of care. Onset of symptoms is unknown. Risk Assessment: Do you want to hurt yourself or someone else? Patient reports no desire to harm self or others. Initial Sepsis Screen: Does the patient meet any 2 criteria? No. Patient's initial sepsis screen is negative. Does the patient have a suspected source of infection? No. Patient's initial sepsis screen is negative. Care prior to arrival: None. 11:43 Method Of Arrival: Wheelchair bp 11:43 Acuity: ROSARIO 3 bp Triage Assessment: 11:40 General: Appears in no apparent distress. comfortable, Behavior is cooperative, bp anxious. Pain: Complains of pain in right arm. EENT: No deficits noted. Neuro: Level of Consciousness is awake, obeys commands, lethargic, Oriented to person, place, situation. Cardiovascular: Rhythm is sinus rhythm. Respiratory: Airway is patent Respiratory effort is even, unlabored, Respiratory pattern is regular, symmetrical. GI: No signs and/or symptoms were reported involving the gastrointestinal system. : No signs and/or symptoms were reported regarding the genitourinary system. Derm: No deficits noted. Musculoskeletal: CHRONIC MUSCULAR IMPAIRMENT. Historical: - Allergies: 11:40 PENICILLINS; bp - Home Meds: 11:40 Unable to obtain [Active]; bp - PMHx: 11:40 ATOXIA; Hypertension; bp - Immunization history:: Adult Immunizations up to date. - Social history:: Smoking status: Patient/guardian denies using tobacco. - Ebola Screening: : No symptoms or risks identified at this time. - Family history:: not pertinent. - Hospitalizations: : No recent hospitalization is reported. Screenin:47 Abuse screen: Denies threats or abuse. Nutritional screening: No deficits noted. tw2 Tuberculosis screening: No symptoms or risk factors identified. Fall Risk Secondary diagnosis (15 points) impaired mobility. Assessment: 11:47 Pain: Pain does not radiate. Pain began. tw2 11:55 General: Appears in no apparent distress. Behavior is calm. Pain: Complains of pain in tw2 right arm. Neuro: Level of Consciousness is awake, alert, obeys commands, Oriented to person, situation. Cardiovascular: Heart tones S1 S2 Patient's skin is warm and dry. Respiratory: Airway is patent Respiratory effort is even, unlabored, shallow, Respiratory pattern is hypoventilation. GI: No signs and/or symptoms were reported involving the gastrointestinal system. Abdomen is flat, Bowel sounds present X 4 quads. : No signs and/or symptoms were reported regarding the genitourinary system. EENT: No signs and/or symptoms were reported regarding the EENT system. Derm: Bruising that is bright red, dark purple, on right arm. Musculoskeletal: Range of motion: limited in right shoulder and right elbow. 12:57 Reassessment: pt is in xray at this time. tw2 13:16 Reassessment: No changes from previously documented assessment. Patient and/or family tw2 updated on plan of care and expected duration. Pain level reassessed. Patient is alert, oriented x 3, equal unlabored respirations, skin warm/dry/pink. 14:23 Reassessment: Patient appears in no apparent distress at this time. No changes from tw2 previously documented assessment. Patient and/or family updated on plan of care and expected duration. Pain level reassessed. Vital Signs: 11:40 BP 107 / 65; Pulse 86; Resp 14; Temp 97; Pulse Ox 88% on R/A; Weight 54.43 kg; bp 13:16 BP 131 / 89; Pulse 78; Resp 14; Pulse Ox 92% on 2 lpm NC; tw2 14:23 BP 109 / 65; Pulse 76; Resp 17; Pulse Ox 96% on 2 lpm NC; tw2 16:38 BP 109 / 63; Pulse 73; Resp 20; Pulse Ox 98% on 2 lpm NC; tw2 17:21 BP 106 / 60; Pulse 68; Resp 19; Pulse Ox 96% on 2 lpm NC; tw2 ED Course: 11:33 Patient arrived in ED. mr 11:33 Elijah Iyer MD is Private Physician. mr 11:44 Triage completed. bp 11:44 Arm band placed on. bp 11:45 EKG done, by pearl technician. reviewed by Yasmany Coats MD. sm3 11:46 Ana Maria Joy, KENNETH is Primary Nurse. tw2 11:47 Call light in reach. Adult w/ patient. personnel monitor on. Pulse ox on. NIBP on. tw2 11:47 Oxygen administration via nasal cannula \T\ 2L/min. tw2 12:05 Inserted saline lock: 22 gauge in left forearm, using aseptic technique. Blood tw2 collected. 12:06 Yash Lopez MD is Attending Physician. wa 12:50 CT Head C Spine In Process Unspecified. EDMS 13:10 XRAY Chest (1 view) In Process Unspecified. EDMS 13:10 XRAY Pelvis In Process Unspecified. EDMS 13:10 Humerus Right XRAY In Process Unspecified. EDMS 13:50 CT Abd/Pelvis - Without Contrast In Process Unspecified. EDMS 14:13 US Abdomen Limited In Process Unspecified. EDMS 15:12 Straight cath inserted, using sterile technique, 18 Fr. Specimen obtained. Returned tw2 KENNETH Obregon served as manager private, pts daughter and aircraft cleaning supervisor remained at bedside. Patient tolerated well. 15:13 Elijah Iyer MD is Hospitalizing Provider. wa 17:25 No provider procedures requiring assistance completed. Patient admitted, IV remains in tw2 place. Administered Medications: 12:38 Drug: Tylenol 1000 mg Route: PO; tw2 13:29 Follow up: Response: No adverse reaction; Pain is decreased tw2 15:49 CANCELLED (IVP available only): Rocephin - (cefTRIAXone) 1 grams IVPB once over 30 tw2 mins; (mix in 50 mL NS) 15:55 Drug: Rocephin 1 grams Route: IV; Rate: bolus; Site: left forearm; tw2 16:00 Follow up: Response: No adverse reaction; IV Status: Completed infusion tw2 Outcome: 15:14 Decision to Hospitalize by Provider. wa 17:25 Admitted to Med/surg accompanied by tech, via stretcher, room 230, with oxygen, with tw2 chart, Report called to KENNETH Viveros 17:25 Condition: stable 17:26 Instructed on the need for admit. tw2 17:46 Patient left the ED. tw2 Signatures: Dispatcher [facility] EDRebekah Thacker, Helga ag Ana Maria Joy RN RN tw2 Yash Lopez MD MD wa Peltier, Brian RN RN Yari Loja 3 Corrections: (The following items were deleted from the chart) 17:21 12:05 Inserted saline lock: 20 gauge in left forearm, using aseptic technique. Blood tw2 collected. 17:22 16:38 BP 109 / 63; Pulse 73bpm; Resp 20bpm; Pulse Ox 98% RA; tw2 tw2
[2018-11-11 15:33] LABS: Urine Blood 1+ (NEG); Urine Glucose NEGATIVE (NEG); Urine Protein 1+ (NEG); Urine pH 5.5 (5.0-7.0)
[2018-11-11 15:41] LABS: Barbiturates NEGATIVE (NEGATIVE); Benzodiazepines POSITIVE (NEGATIVE); Cocaine NEGATIVE (NEGATIVE); METHAMPHETAM NEGATIVE (NEGATIVE); Methadone NEGATIVE (NEGATIVE); Opiates POSITIVE (NEGATIVE); Phencyclidine NEGATIVE (NEGATIVE); THC Cannibis NEGATIVE (NEGATIVE)
[2018-11-11 15:46] LABS: Urine Bacteria >50 /HPF (<20); Urine Culture Reflex Order REFLEXED; Urine Mucus 2+ /HPF (NONE SEEN)
[2018-11-11] MEDS ORDERED: CEFTRIAXONE/SWI 1gm 1 GM/10 ML SYR ONE (16:07)
[2018-11-11] MEDS ORDERED: ACETAMINOPHEN 500 MG TAB PO PRN (17:06)
[2018-11-11] MEDS ORDERED: D5 0.45 NS 1,000 ML IV SCH (18:00)
[2018-11-11 18:15] VITALS: BMI 28.8
[2018-11-11] MEDS ORDERED: ONDANSETRON 4 MG/2 ML VIAL IV PRN (19:23)
[2018-11-11] MEDS ORDERED: MAGNES/ALUMIN/SIMET 30ML UCUP PO PRN (19:24)
[2018-11-11] MEDS ORDERED: MAGNESIUM HYDROXIDE 8% 30 ML PO PRN (19:24)
[2018-11-11] MEDS: D5 0.45 NS 1,000 ML IV SCH (20:00)
[2018-11-11] MEDS: SERTRALINE HCL 100 MG TAB PO SCH (21:50)
[2018-11-11] MEDS ORDERED: ENOXAPARIN 30 MG/0.3 ML SQ ONE (22:00)
--- NOTE | 2018-11-12 03:01 | HP ---
Date of Admission: 11/11/2018 Chief Complaint: Fall and pain, right arm. History Of Present Illness: This is an 87-year-old female patient, who lives at home with her tish snow, fell down at home on Sunday and today she was brought into emergency room. We do not know why s he did not come over the weekend, but today after she was evaluated in the emergency room, she was di agnosed as a fracture of right proximal humerus and the patient also had really bad urinary tract inf ection. She denies any fever or chills. No abdominal pain. No flank pain. She has some burning se nsation on urination. The patient was started on IV fluid and IV antibiotics, and orthopedic consult ation has been requested. When I saw her this evening, there was no family member with her at [facility]. Allergies: PENICILLIN AND TRAMADOL. Medications: List reviewed. Review of Systems: Musculoskeletal: As mentioned above. Genitourinary: As mentioned above. All other systems reviewed and negative. Social History: Negative for smoking or alcohol use. Family History: Significant for mother with lymphoma, brother and father had ataxia. Past Surgical History: Significant for cataract surgery, cholecystectomy, left-sided mastectomy in 2 010 for breast cancer, tonsillectomy, hip replacement in 1998, and cholecystectomy in 1996. Past Medical History: Hypertension, hyperlipidemia, breast cancer, osteoarthritis, depression, iron deficiency anemia. Physical Examination: Vital Signs: When she came into emergency room, initial vital signs with blood pressure rather 107/6 5, oxygen saturation 88%, temperature 97, pulse 86, respiratory rate 14, height 5 feet 7 inches, weig ht 184 pounds. General: Awake, alert, oriented, not in distress. HEENT: Head atraumatic, normocephalic. Conjunctivae nonerythematous. Sclerae white. Mouth: No th pedro or edema noted. Ears/Nose: No mass, lesion, discharge noted. Neck: Supple. No JVD, lymph nodes, bruit, thyromegaly noted. Lungs: Bilateral good equal air entry. Clear to auscultation. No rhonchi. No rales. Heart: Normal heart sounds. No murmur or gallop. Abdomen: Soft. Bowel sounds normal. No guarding, rigidity, tenderness, mass, hepatosplenomegaly, d istention, or bruit noted. Extremities: Right upper extremity is immobilized with shoulder and arm sling. Presence of swelling of right arm and bruising of right arm noted. Radial pulse bilateral 2+ equal. Skin: No rash, ulcer, cellulitis. Lymphatics: No lymph node enlargement in neck, supraclavicular, infraclavicular region. Neuro: No focal neurological deficit. Chest: Unremarkable. External Genitalia: Deferred. Rectal: Deferred. Laboratory Data: White count 5.2, hemoglobin 11.8, platelets 122. INR 1.12. Sodium 137, potassium 4, chloride 101, bicarb 32, BUN 16, creatinine 0.95, glucose 103, magnesium 2.1, total bilirubin 1.1, SGOT 473, SGPT 405, alkaline phosphatase 245. Troponin less than 0.02. ProBNP 750. Urinalysis wit h leukocyte 3+, WBC TNTC, bacteria more than 50, 1+ protein. EKG with normal sinus rhythm, right axi s deviation. Chest x-ray with no acute cardiopulmonary changes. CAT scan of the head and cervical s pine with no acute intracranial changes, evidence of cervical spine degenerative changes present, no fracture. X-ray of the pelvis with right hip arthroplasty changes, acetabular component. Chest x-ra y has almost completely vertical orientation with respect to the right humerus fracture. Right humer us x-ray shows mildly displaced fracture of right humerus neck and it appears to extend into right hu merus head. Ultrasound of abdomen shows cholecystectomy, stable dilatation of common bile duct mi red to 2015. CAT scan of the abdomen and pelvis without contrast done in emergency room shows no franky dence of acute abnormality, presence of left renal cyst and small hepatic cyst. Impression: 1.Right humerus neck fracture, mildly displaced. 2.Urinary tract infection. 3.Iron deficiency anemia, chronic, due to chronic blood loss. 4.Hypertension. 5.Hyperlipidemia. 6.Breast cancer. 7.Osteoarthritis, multiple sites. 8.Depression. 9.Acute hepatitis. Plan: Admit the patient to hospital for further evaluation and management of this problem. The stanislav ent is appropriate for inpatient and is expected to spend 2 midnights in the hospital. For her fract ure of the humerus, immobilization is in place with shoulder and arm sling. We will continue that. We will consult orthopedic surgeon for further recommendation. DVT prophylaxis will be given using L ovenox per order. Pain medication will be given per order. Home medications will be continued per o rder. Fall precaution was ordered. For urinary tract infection, we will give cefepime 1 g every 12 hours. Follow up on urine culture result and provide culture specific antibiotic once the final resu lt is available. Iron deficiency anemia problem is stable. Acute hepatitis problem is likely due to underlying infection. The patient had a normal liver function test last week when she had blood wor k done on an outpatient basis at office. Details and plan of treatment discussed with the patient. TOBIAS/KEZIA Voice ID: [id number]
[2018-11-12] MEDS: D5 0.45 NS 1,000 ML IV SCH (03:35)
[2018-11-12] MEDS ORDERED: CEFEPIME 1 GM/VIAL IV SCH ×2 (05:00→09:00)
[2018-11-12] MEDS: PANTOPRAZOLE 40MG TABLET PO SCH (05:10)
[2018-11-12 05:54] LABS: Absolute Lymphocytes (CBC) 0.7 K/uL (0.7-4.9); Basophils % 0.9 % (0-1.3); Hematocrit 28.8 % (36.0-45.0); MPV 8.5 fL (7.6-11.3); Monocytes % 11.6 % (3.3-12.3); RBC Red Blood Cell Count 3.32 M/uL (3.86-4.86)
[2018-11-12 06:16] LABS: Blood Morphology Comment NOT SEEN (NOT SEEN); Platelet Estimate DECR; Urine White Blood Cell Casts OK
[2018-11-12 06:23] LABS: Potassium 3.6 mmol/L (3.5-5.1)
[2018-11-12] MEDS: NA CHLORIDE 0.9% 1,000 ML IV SCH (06:56)
[2018-11-12 08:05] LABS: Albumin 2.7 g/dL (3.4-5.0); Bilirubin Total 0.7 mg/dL (0.2-1.0); Protein, Total 5.6 g/dL (6.4-8.2)
[2018-11-12] MEDS ORDERED: CEFEPIME/SWI 1gm 10 ML IV SCH (09:00)
[2018-11-12] MEDS: MORPHINE 2 MG/ML SYR IV PRN ×2 (09:19→17:34)
[2018-11-12] MEDS: AMLODIPINE 5 MG TAB PO SCH (09:19)
[2018-11-12] MEDS: FERROUS GLUCONATE 324 MG TAB PO SCH (09:20)
[2018-11-12] MEDS: TRAZODONE 50 MG TABLET PO SCH (09:21)
[2018-11-12] MEDS: METOPROLOL XL 50 MG TAB PO SCH (09:21)
[2018-11-12] MEDS: HYDROCODONE/APAP 5/325 MG TAB PO PRN ×2 (15:31→21:53)
[2018-11-12] MEDS: CEFEPIME/SWI 1gm 10 ML IV SCH (16:49)
--- NOTE | 2018-11-12 16:49 | DS ---
This is my first time seeing this patient in my knowledge, although I may have seen her in the past, not specifically remember her and definitely did not see her for this problem. She was seen and admi tted in the emergency room for a right humerus fracture, which apparently occurred a few days prior t o presentation. Also, I believe she does have urinary tract infection, is admitted under the care of Dr. Iyer. On review of her x-rays, she does have a slightly comminuted proximal humerus fracture, w hich does not appear to be significantly displaced. There is a fracture of the greater tuberosity of the humeral head, does not appear to be a dislocation. This is not conclusive from these x-rays; ho gisselle, on clinical examination, she does not appear to have a posterior or anterior dislocation of th e humerus. Also, she does have some swelling and bruising related to the right proximal humerus exte nding down to the elbow. There is no pain with palpation, elbow, hand, or wrist. There is also no p ain with palpation of any other long bone or joint. Assessment: This is an 87-year-old female, now with a right proximal humerus fracture. This will be treated nonoperatively. We will follow up with the x-rays, however, have Physical therapy work with range of motion of the elbow, wrist, and hand. Otherwise, she would remain in the sling. At the ti me of discharge we usually see them back in approximately 10 days after a fracture to ensure there grover s been no significant displacement of the fracture fragments. Also obtain good radiographs in my off ice. After that, we would follow most likely without change as it is rare for these 2 displace to a point that operative intervention we think to be needed. Definitely no operative intervention is tracey nned and this would only change if there is significant change in the presentation, although we will follow that. Otherwise, pain contr ol can be used. SE/MODL Voice ID: [id number] Report ID: [id number]
[2018-11-12] MEDS ORDERED: ENOXAPARIN 30 MG/0.3 ML SQ SCH (17:00)
--- NOTE | 2018-11-12 21:08 | PN ---
Date of Progress Note: 11/12/2018 Subjective: The patient was seen this morning for followup. She was lying in bed, not in distress. No new complaints or problems reported by her. Objective: Vital Signs: Reviewed. HEENT Examination: Unremarkable. Lungs: Clear to auscultation. Heart: Sounds normal. Abdomen: Soft. Bowel sounds normal. No guarding, rigidity, tenderness, distention. Extremities: No leg edema. Laboratory Data: White count 3.4, hemoglobin 9.3, platelets 84. Sodium 134, potassium 3.6, chloride 101, bicarb 30, BUN 13, creatinine 0.86, glucose 424. Impression: 1.Urinary tract infection. 2.Fracture, right humerus. 3.Iron deficiency anemia. 4.Thrombocytopenia. 5.Hyperglycemia. 6.Acute hepatitis. Plan: Urine culture result is pending. We will continue current empiric antibiotic. Lately, we hav e seen significant number of patients with resistant bacterial infection including ESBL and consideri ng patient's overall compromised status. We will not feel comfortable discharging her at this point until we get final culture results back and then decide about culture specific antibiotics. Her hemo globin has dropped along with the platelet count today compared to yesterday. We will continue to mo nitor that. In the past, she had problem with iron deficiency anemia due to GI blood loss, so we raymond l monitor her for any evidence of that. Continue current Lovenox for DVT prophylaxis. I did talk to her regarding discharge planning including possibility of going into [facility] and she is agreeab le, so we will request social service consultation for that. If the patient and family agrees, then Social Service can assist with [facility] facility placement. Her glucose level was elevated th is morning and I believe that this was because of the blood that was drawn from blood draw site proxi mal to the IV fluid administration site as noted on the left arm. I have asked nurse to change IV fl uid and to redraw blood distal to the IV administration site. We will follow up that. I will see he r tomorrow. We will repeat blood work tomorrow morning. Details were discussed with Dr. Chung. He has recommended conservative medical treatment for this fracture and he would like to follow up a t his office in 10 days. TOBIAS/MODL Voice ID: [id number] Report ID: [id number]
[2018-11-12] MEDS: SERTRALINE HCL 100 MG TAB PO SCH (21:53)
[2018-11-13] MEDS: MORPHINE 2 MG/ML SYR IV PRN ×3 (00:31→15:42)
[2018-11-13] MEDS: NA CHLORIDE 0.9% 1,000 ML IV SCH (00:32)
[2018-11-13 01:30] VITALS: O2SAT 92
[2018-11-13] MEDS: PANTOPRAZOLE 40MG TABLET PO SCH (05:06)
[2018-11-13] MEDS: CEFEPIME/SWI 1gm 10 ML IV SCH (05:06)
[2018-11-13] MEDS: HYDROCODONE/APAP 5/325 MG TAB PO PRN (05:06)
[2018-11-13 07:40] LABS: Absolute Lymphocytes (CBC) 0.7 K/uL (0.7-4.9); Basophils % 0.7 % (0-1.3); Eosinophils % 2.6 % (0-4.4); Lymphocytes % 18.8 % (15.3-44.8); MPV 8.9 fL (7.6-11.3); Monocytes % 11.9 % (3.3-12.3); RBC Red Blood Cell Count 3.31 M/uL (3.86-4.86)
[2018-11-13 07:44] LABS: Albumin 2.5 g/dL (3.4-5.0); Potassium 4.2 mmol/L (3.5-5.1); Protein, Total 5.3 g/dL (6.4-8.2)
[2018-11-13] MEDS: FERROUS GLUCONATE 324 MG TAB PO SCH (08:47)
[2018-11-13] MEDS: METOPROLOL XL 50 MG TAB PO SCH (08:47)
[2018-11-13] MEDS: AMLODIPINE 5 MG TAB PO SCH (08:48)
[2018-11-13] MEDS: TRAZODONE 50 MG TABLET PO SCH (08:49)
[2018-11-13] MEDS ORDERED: CIPROFLOXACIN HCL 500 MG TAB PO SCH (09:00)
[2018-11-13 13:18] VITALS: BP 111/57; TEMP 97.9
--- NOTE | 2018-11-14 01:41 | DS ---
Date of Discharge: 11/13/2018 Disposition: Discharged to go home. Physical Examination: HEENT: Unremarkable. Lungs: Clear to auscultation. No rhonchi or rales. Heart: Sounds normal. Abdomen: Soft. Bowel sounds normal. No guarding, rigidity, tenderness, distention. Extremities: No leg edema. The patient has edema and bruising of right arm unchanged. Laboratory Data: Urine culture growing E coli. Initial white count 5.2, hemoglobin 11.8, platelets 122. Initial sodium 137, potassium 4, chloride 101, bicarb 32, BUN 16, creatinine 0.95, glucose 113, SGOT 473, SGPT 405, alkaline phosphatase 245, total bilirubin 1.1. Hospital Course: This is an 87-year-old female patient, who fell down at home and was brought into e mergency room with complaints of pain in her right arm. Please see dictated H and P for more informa tion. After she came into the emergency room, she was diagnosed as having fracture of the right migue lizette neck, mildly displaced. The patient also had urinary tract infection. She was started on IV ant ibiotics, which was IV ceftriaxone. Urine culture was done. Final urine culture report came back to day growing E coli sensitive to multiple different antibiotics and Cipro was started 500 mg p.o. twic e a day. Later on at the time of discharge when I was reviewing the office record, she was listed as allergic to Levaquin causing rash, so decision was made not to discharge her with Cipro, but to disc harge her with Bactrim DS. Initially, it was recommended for the patient to go to [facility] and the patient's daughter and the patient, they both were agreeable, so Social Service was co nsulted, but I was notified that the patient does not meet inpatient hospital criteria for inpatient admission and she will be observation and with that, she will not meet criteria for her to go to [facility]. So, the patient's family once they found out, they decided to take her home in stead of halfway and she was discharged to go home today. She is not really requiring much stro nger narcotic pain medication. Dr. Chung evaluated her for right humerus fracture and he recomme nded no surgery and she will follow up at office in 10 days. Shoulder/arm sling was applied and the patient will be discharged to go home with that particular kind of arm sling. The patient's liver fu nction tests were followed during this hospitalization and they have shown improvement, I believe sandra t is due to acute infectious hepatitis. The patient's abdominal ultrasound and CAT scan did not show any acute finding. Final Diagnoses: 1.Right humerus neck fracture, mildly displaced. 2.Urinary tract infection. 3.Iron deficiency anemia due to chronic blood loss. 4.Hypertension. 5.Hyperlipidemia. 6.Breast cancer. 7.Osteoarthritis, multiple sites. 8.Depression. 9.Acute hepatitis. TOBIAS/MODL Voice ID: [id number] Report ID: [id number]
== END 2018-11-13 16:02 | disposition home or self-care (01) ==
LOC: ER 11:29 → ERHOLD 17:03 → INTOOBSV 17:03 → 2ND 17:25
PROVIDERS: ADMIT Internal Medicine; ATTEND Internal Medicine
DX: S42.251A Displaced fracture of greater tuberosity of right humerus, initial encounter for closed fracture (principal); W19.XXXA Unspecified fall, initial encounter; N39.0 Urinary tract infection, site not specified; B96.20 Unspecified Escherichia coli [E. coli] as the cause of diseases classified elsewhere; D50.0 Iron deficiency anemia secondary to blood loss (chronic); I10 Essential (primary) hypertension; E78.5 Hyperlipidemia, unspecified; M15.9 Polyosteoarthritis, unspecified; F32.9 Major depressive disorder, single episode, unspecified; B17.9 Acute viral hepatitis, unspecified; D69.6 Thrombocytopenia, unspecified; M81.0 Age-related osteoporosis without current pathological fracture; R73.9 Hyperglycemia, unspecified; Z85.3 Personal history of malignant neoplasm of breast
CPT/HCPCS: 93005; 87088; 85025 ×3; 87086; 80048 ×2; 36415 ×2; 83735; 85610; 80076; 80307 ×8; 87077; 87186; 84484; 83690; 80053 ×2; 83880; 70450; 72125; 74176; 71045; 72170; 73060; 76705; 51702; 96374; 99285; J1650 ×2; J2270 ×5; J0696; J0692 ×2; J7030 ×2; G0378 ×2; 81003; 81015

== ENCOUNTER 2019-06-16 11:48 | Inpatient (IN) | payer OTHER, MEDICARE ==
[2019-06-16] MEDS ORDERED: METHYLPREDNISOLONE 125 MG INJ ONE (12:49)
[2019-06-16] MEDS ORDERED: IPRATROPIUM BROM 0.5MG/2.5ML ONE (12:49)
[2019-06-16] MEDS ORDERED: CEFTRIAXONE/SWI 1gm 1 GM/10 ML SYR ONE (12:49)
[2019-06-16] MEDS ORDERED: LEVALBUTEROL 1.25 MG/3 ML NEB ONE (12:49)
[2019-06-16 12:59] LABS: Basophils % 0.6 % (0-1.3); Hematocrit 34.3 % (36.0-45.0); Lymphocytes % 13.5 % (15.3-44.8); MPV 8.5 fL (7.6-11.3); RBC Red Blood Cell Count 4.01 M/uL (3.86-4.86)
[2019-06-16] MEDS ORDERED: AZITHROMYCIN IV 500 MG in NA CHLORIDE 0.9% 250 ML IVPB ONE (13:00)
[2019-06-16 13:03] LABS: Protime INR 1.23
[2019-06-16 13:19] LABS: ALT/SGPT 18 U/L (12-78); AST/SGOT 13 U/L (15-37); Alkaline Phosphatase 128 U/L (45-117); BUN Blood Urea Nitrogen 21 mg/dL (7-18); Bicarbonate 30 mmol/L (21-32); Bilirubin Direct 0.3 mg/dL (0-0.2); Bilirubin Total 0.6 mg/dL (0.2-1.0); CKMB Creatine Kinase MB < 1.0 ng/mL (0.3-3.6); Creatine Phosphokinase 38 U/L (26-192); Glucose Level 102 mg/dL (74-106); Lipase 109 U/L (73-393); Magnesium 1.9 mg/dL (1.8-2.4); NT PRO-BNP 262 pg/mL (<450); Potassium 4.1 mmol/L (3.5-5.1); Protein, Total 6.8 g/dL (6.4-8.2); Sodium Level 139 mmol/L (136-145); Troponin (Emerg Dept Use Only) < 0.02 ng/mL (0.0-0.045)
--- NOTE | 2019-06-16 13:36 | RAD REPORT ---
EXAM DESCRIPTION: RAD - Chest Single View - 06/16/2019 1:27 pm CLINICAL HISTORY: CONGESTION Chest pain. COMPARISON: Chest Single View dated 11/11/2018; Chest Single View dated 07/08/2018; Chest Single View dated 07/07/2018; CHEST SINGLE VIEW dated 01/26/2015 FINDINGS: Portable technique limits examination quality. Moderate left basilar lung opacity is present compatible with pneumonia. The lungs are otherwise damir sly clear. The heart is normal in size. No displaced fractures. IMPRESSION: Left lower lobe pneumonia.
--- NOTE | 2019-06-16 14:14 | ER ---
Nurse's Notes [facility] Name: Mila Johnson Age: 88 yrs Sex: Female : 1930 Arrival Date: 06/16/2019 Time: 11:52 Bed 5 Private MD: Diagnosis: Pneumonia due to other specified bacteria;Severe sepsis without septic shock Presentation: 06/16 12:19 Presenting complaint: states: SOB x 1.5 weeks, fever started today. Pt is sv bedridden. Transition of care: patient was not received from another setting of care. Onset of symptoms was June 05, 2019. Risk Assessment: Do you want to hurt yourself or someone else? Patient reports no desire to harm self or others. Care prior to arrival: Medication(s) given: Motrin, taken at 0830. 12:19 Method Of Arrival: Wheelchair sv 12:19 Acuity: ROSARIO 3 sv 12:20 Initial Sepsis Screen: Does the patient meet any 2 criteria? RR > 20 per min. No. sv Patient's initial sepsis screen is negative. Does the patient have a suspected source of infection? No. Patient's initial sepsis screen is negative. Triage Assessment: 12:20 General: Appears in no apparent distress. comfortable, well developed, Behavior is sv calm, cooperative, appropriate for age. General: Reports fever for 12-24 hours. Pain: Denies pain. Neuro: Level of Consciousness is awake, alert, obeys commands, Oriented to person, situation. Respiratory: Reports shortness of breath at rest Airway is patent Respiratory effort is even, unlabored, Respiratory pattern is symmetrical, tachypnea Onset: The symptoms/episode began/occurred this morning, the patient has mild shortness of breath. Derm: Skin is normal. Historical: - Allergies: 12:20 PENICILLINS; sv - PMHx: 12:20 ATOXIA; Hypertension; Breast cancer; sv - PSHx: 12:20 left mastectomy; sv - Immunization history:: Adult Immunizations up to date. - Social history:: Smoking status: Patient denies any tobacco usage or history of. Patient/guardian denies using alcohol, street drugs, The patient lives with family. - Ebola Screening: : No symptoms or risks identified at this time. - Family history:: not pertinent. - Hospitalizations: : No recent hospitalization is reported. Screenin:40 Abuse screen: Denies threats or abuse. Denies injuries from another. Nutritional sv screening: No deficits noted. Tuberculosis screening: No symptoms or risk factors identified. Fall Risk No fall in past 12 months (0 pts). Secondary diagnosis (15 points) impaired mobility, IV access (20 points). Ambulatory Aid- None/Bed Rest/Nurse Assist (0 pts). Gait- Normal/Bed Rest/Wheelchair (0 pts) Mental Status- Oriented to own ability (0 pts). Total Sahni Fall Scale indicates Low Risk Score (25-44 pts). Fall prevention measures have been instituted. Side Rails Up X 2 Placed close to Nursing Station 1:1 attendant Assigned to Pt. Frequent Obs/Assesments occuring Family Present and informed to notify staff if they need to leave bedside As available Patient and Family Educated on Fall Prevention Program and strategies. Assessment: 13:54 Reassessment: Patient appears in no apparent distress at this time. Patient and/or sv family updated on plan of care and expected duration. Pain level reassessed. Patient is alert, oriented x 3, equal unlabored respirations, skin warm/dry/pink. 14:02 Reassessment: Dr Billings in speaking with the pt and family regarding results and sv admission. 14:46 Reassessment: Patient appears in no apparent distress at this time. Patient and/or sv family updated on plan of care and expected duration. Pain level reassessed. Patient is alert, oriented x 3, equal unlabored respirations, skin warm/dry/pink. 15:27 Reassessment: Attempted to call report, nurse to call back. sv 16:26 Reassessment: Patient appears in no apparent distress at this time. Patient and/or sv family updated on plan of care and expected duration. Pain level reassessed. Patient is alert, oriented x 3, equal unlabored respirations, skin warm/dry/pink. Vital Signs: 12:07 BP 117 / 73; Pulse 98; Resp 22; Temp 98.1(O); Pulse Ox 91% on R/A; Weight 66.68 kg; ms Height 5 ft. 7 in. (170.18 cm); Pain 6/10; 12:20 Pulse Ox 96% on R/A; sv 13:05 BP 132 / 66; Pulse 97; Resp 20; Pulse Ox 100% on Nebulizer Mask; sv 13:53 BP 96 / 58; Pulse 106; Resp 21; Pulse Ox 97% on 2 lpm NC; sv 15:11 BP 95 / 55; Pulse 95; Resp 20; sv 15:32 BP 104 / 82; Pulse 105; Resp 20; Pulse Ox 95% on 2 lpm NC; sv 12:07 Body Mass Index 23.02 (66.68 kg, 170.18 cm) ms ED Course: 11:52 Patient arrived in ED. ds1 12:03 Nilson Billings MD is Attending Physician. ma2 12:19 Ivon Holland RN is Primary Nurse. sv 12:20 Triage completed. sv 12:20 Arm band placed on Patient placed in an exam room, on a stretcher, on oxygen, on pulse sv oximetry. 12:21 ED physician to see patient. sv 12:40 Patient has correct armband on for positive identification. Placed in gown. Bed in low sv position. Call light in reach. Side rails up X2. Pulse ox on. NIBP on. Door closed. Head of bed elevated. 12:45 Initial lab(s) drawn, by me, sent to lab. First set of blood cultures drawn by me. sv Inserted saline lock: 20 gauge in right forearm, using aseptic technique. Blood collected. Flushed right forearm with 5 ml normal saline. 12:50 Second set of blood cultures drawn by me. sv 13:08 Blood Culture Adult (2) Sent. sv 13:08 BMP Sent. sv 13:08 CBC with Diff Sent. sv 13:08 Ckmb Sent. sv 13:08 CPK Sent. sv 13:08 D-Dimer Sent. sv 13:08 Hepatic Function Sent. sv 13:08 Lipase Sent. sv 13:08 Magnesium Sent. sv 13:27 XRAY CXR (1 view) In Process Unspecified. EDMS 14:13 Elijah yIer MD is Hospitalizing Provider. ma2 15:49 No provider procedures requiring assistance completed. Patient admitted, IV remains in sv place. intact. Administered Medications: 12:55 Drug: SOLU-Medrol 125 mg Route: IVP; Site: right antecubital; sv 13:30 Follow up: Response: No adverse reaction sv 12:58 Drug: Rocephin 1 grams Route: IV; Rate: calculated rate; Site: right antecubital; sv 13:01 Drug: AZITHromycin 500 mg Route: IVPB; Infused Over: 1 hrs; Site: right antecubital; sv 14:00 Follow up: Response: No adverse reaction; IV Status: Completed infusion; IV Intake: sv 500ml 13:03 Drug: Xopenex 1.25 mg Route: Inhalation; sv 13:03 Drug: AtroVENT Aerosol 0.5 mg Route: Inhalation; sv 13:03 Follow up: Dr Billings stated only to give 1 atrovent. sv Intake: 14:00 IV: 500ml; Total: 500ml. sv Outcome: 14:14 Decision to Hospitalize by Provider. ma2 15:48 Admitted to Tele accompanied by tech, family with patient, via stretcher, room 429, sv with oxygen, with chart, Report called to Koffi COOPER 15:48 Condition: stable 15:48 Instructed on the need for admit. 16:26 Patient left the ED. sv Signatures: Dispatcher [employer] Ivon Lewis RN RN sv Sanford, Demi ds1 Villarreal, Maria ms Alzahri, Mohammad, MD MD ma2
--- NOTE | 2019-06-16 14:15 | EDPHYS ---
Physician Documentation [facility] Name: Mila Johnson Age: 88 yrs Sex: Female : 1930 Arrival Date: 06/16/2019 Time: 11:52 Bed 5 Private MD: ED Physician Nilson Billings HPI: 06/16 14:11 This 88 yrs old Female presents to ER via Wheelchair with complaints of ma2 Fever, Shortness Of Breath. 14:11 The patient reports fever, not measured (subjective). Onset: The symptoms/episode ma2 began/occurred gradually, 2 day(s) ago. Associated signs and symptoms: Pertinent negatives: altered mental status, chills, earache, sinus congestion. Severity of symptoms: At their worst the symptoms were moderate in the emergency department the symptoms are unchanged. The patient has experienced a previous episode. Historical: - Allergies: 12:20 PENICILLINS; sv - PMHx: 12:20 ATOXIA; Hypertension; Breast cancer; sv - PSHx: 12:20 left mastectomy; sv - Immunization history:: Adult Immunizations up to date. - Social history:: Smoking status: Patient denies any tobacco usage or history of. Patient/guardian denies using alcohol, street drugs, The patient lives with family. - Ebola Screening: : No symptoms or risks identified at this time. - Family history:: not pertinent. - Hospitalizations: : No recent hospitalization is reported. ROS: 14:11 Constitutional: Negative for fever, chills, and weight loss. ma2 14:11 All other systems are negative. Exam: 14:11 Constitutional: This is a well developed, well nourished patient who is awake, alert, ma2 and in no acute distress. Chest/axilla: Normal chest wall appearance and motion. Nontender with no deformity. No lesions are appreciated. Cardiovascular: Regular rate and rhythm with a normal S1 and S2. No gallops, murmurs, or rubs. Normal PMI, no JVD. No pulse deficits. Respiratory: Lungs have equal breath sounds bilaterally, + rales on left lower zone, + expiratory wheezes noted. No increased work of breathing, no retractions or nasal flaring. Abdomen/GI: Soft, non-tender, with normal bowel sounds. No distension or tympany. No guarding or rebound. No evidence of tenderness throughout. MS/ Extremity: Pulses equal, no cyanosis. Neurovascular intact. Full, normal range of motion. Neuro: Awake and alert, GCS 15, oriented to person, place, time, and situation. Cranial nerves II-XII grossly intact. Motor strength 5/5 in all extremities. Sensory grossly intact. Cerebellar exam normal. Normal gait. Vital Signs: 12:07 BP 117 / 73; Pulse 98; Resp 22; Temp 98.1(O); Pulse Ox 91% on R/A; Weight 66.68 kg; ms Height 5 ft. 7 in. (170.18 cm); Pain 6/10; 12:20 Pulse Ox 96% on R/A; sv 13:05 BP 132 / 66; Pulse 97; Resp 20; Pulse Ox 100% on Nebulizer Mask; sv 13:53 BP 96 / 58; Pulse 106; Resp 21; Pulse Ox 97% on 2 lpm NC; sv 15:11 BP 95 / 55; Pulse 95; Resp 20; sv 15:32 BP 104 / 82; Pulse 105; Resp 20; Pulse Ox 95% on 2 lpm NC; sv 12:07 Body Mass Index 23.02 (66.68 kg, 170.18 cm) ms MDM: 12:03 Patient medically screened. ma2 14:11 Differential diagnosis: viral Infection, bronchitis, pneumonia gastroenteritis. Data ma2 reviewed: vital signs, nurses notes. Counseling: I had a detailed discussion with the patient and/or guardian regarding: the historical points, exam findings, and any diagnostic results supporting the discharge/admit diagnosis, the presence of at least one elevated blood pressure reading (>120/80) during this emergency department visit, the need for outpatient follow up. Response to treatment: the patient's symptoms have markedly improved after treatment. 06/16 12:20 Order name: Blood Culture Adult (2) 2 06/16 12:20 Order name: BMP 2 06/16 12:20 Order name: CBC with Diff 2 06/16 12:20 Order name: Ckmb 2 06/16 12:20 Order name: CPK 06/16 12:20 Order name: D-Dimer 2 06/16 12:20 Order name: Hepatic Function mt2 06/16 12:20 Order name: Lipase 2 06/16 12:20 Order name: Magnesium [facility] 06/16 12:20 Order name: NT PRO-BNP; Complete Time: 13:20 [facility] 06/16 12:20 Order name: PT-INR; Complete Time: 13:10 [facility] 06/16 12:20 Order name: Ptt, Activated; Complete Time: 13:10 [facility] 06/16 12:20 Order name: Troponin (emerg Dept Use Only); Complete Time: 13:20 [facility] 06/16 12:20 Order name: Blood Culture Adult (2) [facility] 06/16 12:21 Order name: Blood Culture [facility] 06/16 12:21 Order name: Basic Metabolic Panel; Complete Time: 13:20 [facility] 06/16 12:21 Order name: CBC with Automated Diff; Complete Time: 13:10 [facility] 06/16 12:21 Order name: CKMB Creatine Kinase MB; Complete Time: 13:20 [facility] 06/16 12:21 Order name: Creatine Phosphokinase; Complete Time: 13:20 [facility] 06/16 12:21 Order name: D-Dimer; Complete Time: 13:10 [facility] 06/16 12:21 Order name: Liver (Hepatic) Function; Complete Time: 13:20 [facility] 06/16 12:21 Order name: Lipase; Complete Time: 13:20 [facility] 06/16 12:21 Order name: Magnesium; Complete Time: 13:20 [facility] 06/16 14:29 Order name: Basic Metabolic Panel [facility] 06/16 14:29 Order name: Basic Metabolic Panel [facility] 06/16 14:29 Order name: CBC with Automated Diff [facility] 06/16 14:29 Order name: CBC with Automated Diff [facility] 06/16 14:29 Order name: NT PRO-BNP [facility] 06/16 14:29 Order name: NT PRO-BNP [facility] 06/16 12:20 Order name: XRAY CXR (1 view); Complete Time: 13:59 [facility] 06/16 12:20 Order name: EKG; Complete Time: 12:22 [facility] 06/16 12:20 Order name: Cardiac monitoring; Complete Time: 13:08 [facility] 06/16 12:20 Order name: EKG - Nurse/Tech; Complete Time: 12:39 [facility] 06/16 12:20 Order name: IV Saline Lock; Complete Time: 13:08 [facility] 06/16 12:20 Order name: Labs collected and sent; Complete Time: 13:08 [facility] 06/16 12:20 Order name: O2 Per Protocol; Complete Time: 12:39 [facility] 06/16 12:20 Order name: O2 Sat Monitoring; Complete Time: 12:39 [facility] 06/16 14:29 Order name: Regular [facility] 06/16 14:29 Order name: Troponin I [facility] 06/16 14:29 Order name: Troponin I [facility] 06/16 14:29 Order name: Troponin I [facility] Administered Medications: 12:55 Drug: SOLU-Medrol 125 mg Route: IVP; Site: right antecubital; sv 13:30 Follow up: Response: No adverse reaction sv 12:58 Drug: Rocephin 1 grams Route: IV; Rate: calculated rate; Site: right antecubital; sv 13:01 Drug: AZITHromycin 500 mg Route: IVPB; Infused Over: 1 hrs; Site: right antecubital; sv 14:00 Follow up: Response: No adverse reaction; IV Status: Completed infusion; IV Intake: sv 500ml 13:03 Drug: Xopenex 1.25 mg Route: Inhalation; sv 13:03 Drug: AtroVENT Aerosol 0.5 mg Route: Inhalation; sv 13:03 Follow up: Dr Billings stated only to give 1 atrovent. sv Disposition: 06/16/19 14:14 Hospitalization ordered by Elijah Iyer for Inpatient Admission. Preliminary diagnosis are Pneumonia due to other specified bacteria, Severe sepsis without septic shock. - Bed requested for Telemetry/MedSurg (Inpatient). - Status is Inpatient Admission. sv - Condition is Stable. - Problem is new. - Symptoms are unchanged. UTI on Admission? No Signatures: Dispatcher [employer] [facility] Maryan Elam Stephanie, RN RN sv Alzahri, Mohammad, MD MD ma2 Corrections: (The following items were deleted from the chart) 12:25 12:22 LIPASE+C.LAB.BRZ ordered. [facility] 15:26 14:14 Hospitalization Ordered by Elijah Iyer MD for Inpatient Admission. Preliminary bd diagnosis is Pneumonia due to other specified bacteria; Severe sepsis without septic shock. Bed requested for Telemetry/MedSurg (Inpatient). Status is Inpatient Admission. Condition is Stable. Problem is new. Symptoms are unchanged. UTI on Admission? No. ma2 16:26 15:26 06/16/2019 14:14 Hospitalization Ordered by Elijah Iyer MD for Inpatient sv Admission. Preliminary diagnosis is Pneumonia due to other specified bacteria; Severe sepsis without septic shock. Bed requested for Telemetry/MedSurg (Inpatient). Status is Inpatient Admission. Condition is Stable. Problem is new. Symptoms are unchanged. UTI on Admission? No. bd
[2019-06-16] MEDS ORDERED: ALBUTEROL 2.5 MG/3 ML NEB SOL NEB PRN (14:25)
[2019-06-16] MEDS ORDERED: IPRATROPIUM BROM 0.5MG/2.5ML NEB PRN (14:25)
--- NOTE | 2019-06-16 14:52 | EKG ---
Test Date: 2019-06-16 Test Time: 12:40:28 Medical Claims Analyst: [place] MEASUREMENT RESULTS: Intervals: Rate: 95 FL: 186 QRSD: 76 QT: 344 QTc: 432 [place]: P: 65 FL: 186 QRS: 60 T: 72 INTERPRETIVE STATEMENTS: Normal sinus rhythm Normal ECG Compared to ECG 11/11/2018 11:42:44 Right-axis deviation no longer present Myocardial infarct finding no longer present Electronically Signed On 06-16-19 14:51:20 [employer] POLISHER by Osvaldo Vinson
[2019-06-16 16:21] VITALS: BMI 25.0
[2019-06-16] MEDS: TRAZODONE 50 MG TABLET PO SCH ×2 (20:45→20:51)
[2019-06-16] MEDS: SERTRALINE HCL 100 MG TAB PO SCH (20:45)
[2019-06-16] MEDS: CEFTRIAXONE/SWI 1gm 1 GM/10 ML SYR IV SCH (20:45)
[2019-06-16] MEDS: QUETIAPINE 100MG TAB PO SCH (21:52)
--- NOTE | 2019-06-17 01:18 | HP ---
Date of Admission: 06/16/2019 Chief Complaint: Cough, congestion, fever. History Of Present Illness: This is an 88-year-old pleasant female patient living at home, came into emergency room with 3-day history of cough, chest congestion, coughing up yellowish colored mucus, a nd fever. After she was evaluated in the ER, she was admitted to hospital with pneumonia problem. Cordelia forde also had very poor appetite in last 3 days and this evening was the first time that she ate be tter in last 3 days. No vomiting. No diarrhea. Allergies: PENICILLIN AND TRAMADOL. Medications: List reviewed. Review of Systems: Constitutional: As mentioned above. Respiratory: As mentioned above. All other systems reviewed and negative. Social History: Negative for smoking and alcohol use. Family History: Significant for mother had lymphoma. Brother and father had ataxia problem. Past Surgical History: Significant for cataract surgery, cholecystectomy, left-sided mastectomy in 2 010 for breast cancer, tonsillectomy, hip replacement in 1998, and cholecystectomy in 1996. Past Medical History: Hypertension, hyperlipidemia, breast cancer, osteoarthritis, depression, iron deficiency anemia. Physical Examination: Vital Signs: Temperature 97.4, pulse 89, respiratory rate 28, blood pressure 100/57, oxygen saturati on 94%. Height 5 feet 7 inches, weight 160 pounds. General: Awake, alert, oriented, not in distress. HEENT: Head atraumatic, normocephalic. Conjunctivae nonerythematous. Sclerae white. Mouth, no thr ush or edema noted. Ears/Nose, no mass, lesion, discharge noted. Neck: Supple. No JVD, lymph nodes, bruit, thyromegaly noted. Lungs: Presence of diminished air entry with rales noted in left lower lung field. Heart: Normal heart sounds, no murmur or gallop. Abdomen: Soft, bowel sounds normal. No guarding, rigidity, tenderness, mass, hepatosplenomegaly, dis tention, or bruit noted. Extremities: No leg edema. No calf tenderness. Skin: No rash, ulcer, cellulitis. Lymphatics: No lymph node enlargement in neck, supraclavicular, infraclavicular region. Neuro: No focal neurological deficit. Chest: Unremarkable. External Genitalia: Deferred. Rectal: Deferred. Laboratory Data: Chest x-ray shows left lower lobe pneumonia. EKG, normal sinus rhythm, no acute ST -T changes. White count 7.5, hemoglobin 11.5, platelets 130. Sodium 139, potassium 4.1, chloride 10 4, bicarb 30, BUN 21, creatinine 0.94, glucose 102. Liver function tests unremarkable. Troponin les s than 0.02. Lipase 101. Impression: 1.Left lower lobe pneumonia. 2.Iron-deficiency anemia. 3.Thrombocytopenia. 4.Hypertension. 5.Hyperlipidemia. 6.Left-sided breast cancer. 7.Osteoarthritis, multiple sites. 8.Depression. Plan: We will admit patient to hospital for further evaluation of this problem. Patient is appropri ate for inpatient and is expected to spend 2 midnights in hospital. We will continue home medication s per order. DVT prophylaxis will be given per order using SCD and Lovenox. Patient was started on ceftriaxone and erythromycin, antibiotics. Repeat blood work tomorrow. I will see her tomorrow for followup. Details of plan of treatment disc ussed with her. TOBIAS/MODL Voice ID: [id number]
[2019-06-17 05:55] LABS: Absolute Lymphocytes (CBC) 0.4 K/uL (0.7-4.9); Basophils % 0.2 % (0-1.3); Hematocrit 31.8 % (36.0-45.0); Lymphocytes % 9.1 % (15.3-44.8); MPV 8.7 fL (7.6-11.3); RBC Red Blood Cell Count 3.74 M/uL (3.86-4.86)
[2019-06-17 06:14] LABS: Potassium 4.2 mmol/L (3.5-5.1)
[2019-06-17 06:41] LABS: Blood Morphology Comment NOT SEEN (NOT SEEN); Platelet Estimate ADEQ
[2019-06-17] MEDS: ENOXAPARIN 30 MG/0.3 ML SQ SCH (08:56)
[2019-06-17] MEDS: CEFTRIAXONE/SWI 1gm 1 GM/10 ML SYR IV SCH ×2 (08:56→20:57)
[2019-06-17] MEDS: AZITHROMYCIN IV 250 MG in NA CHLORIDE 0.9% 250 ML IVPB SCH (08:57)
[2019-06-17] MEDS: METOPROLOL XL 50 MG TAB PO SCH (08:57)
[2019-06-17] MEDS: AMLODIPINE 5 MG TAB PO SCH (08:57)
[2019-06-17] MEDS: FERROUS GLUCONATE 324 MG TAB PO SCH (08:58)
[2019-06-17] MEDS ORDERED: PANTOPRAZOLE 40MG TABLET PO SCH (09:00)
--- NOTE | 2019-06-17 15:27 | RAD REPORT ---
EXAM DESCRIPTION: RAD - Chest Single View - 06/17/2019 2:44 pm CLINICAL HISTORY: pneumonia Chest pain. COMPARISON: Chest Single View dated 06/16/2019; Chest Single View dated 11/11/2018; Chest Single View dated 07/08/2018; Chest Single View dated 07/07/2018; Abdomen Pelvis Wo Contrast dated 11/11/2018 FINDINGS: Portable technique limits examination quality. Hazy opacities are present in the lung bases, likely representing pneumonia and appearing slightly pr ogressive since the prior study. The heart is normal in size. A moderate hiatal hernia is present. IMPRESSION: Mild worsening in basilar lung aeration since comparative study.
[2019-06-17] MEDS: SERTRALINE HCL 100 MG TAB PO SCH (20:58)
[2019-06-17] MEDS: TRAZODONE 50 MG TABLET PO SCH (20:58)
[2019-06-17] MEDS: QUETIAPINE 100MG TAB PO SCH (20:58)
--- NOTE | 2019-06-17 21:05 | PN ---
Date of Progress Note: 06/17/2019 Subjective: Patient was seen this morning for followup. No new complaints or problems reported by eleonora forde, lying in bed, not in any distress. Objective: Vital Signs: Reviewed. HEENT: Unremarkable. Lungs: Bilateral good equal air entry. Not in any respiratory distress. Presence of basal rales no sheri. Heart: Heart sounds normal. Abdomen: Soft. Bowel sounds normal. No guarding, rigidity, tenderness, or distention. Extremities: No leg edema. Laboratory Data: White count 4.7, hemoglobin 10.7, platelets 130. Sodium 139, potassium 4.2, chlori de 107, bicarb 31, BUN 20, creatinine 0.82, glucose 178. Impression: 1.Pneumonia. 2.Hypertension. 3.Hypothyroidism. Plan: Continue current medications. Chest x-ray was done this afternoon. Results reviewed. We raymond see continue current antibiotic. I will see her tomorrow for followup. TOBIAS/MODL Voice ID: [id number] Report ID: [id number]
[2019-06-18] MEDS ORDERED: SODIUM CHLORIDE 0.9% 10ML INJ IV PRN (07:49)
[2019-06-18] MEDS: AMLODIPINE 5 MG TAB PO SCH (08:27)
[2019-06-18] MEDS: METOPROLOL XL 50 MG TAB PO SCH (08:28)
[2019-06-18] MEDS: PANTOPRAZOLE 40 MG INJ IVP SCH (08:32)
[2019-06-18] MEDS: ENOXAPARIN 30 MG/0.3 ML SQ SCH (08:32)
[2019-06-18] MEDS: CEFTRIAXONE/SWI 1gm 1 GM/10 ML SYR IV SCH ×2 (08:32→21:42)
[2019-06-18] MEDS: AZITHROMYCIN IV 250 MG in NA CHLORIDE 0.9% 250 ML IVPB SCH (08:32)
[2019-06-18] MEDS ORDERED: WATER FOR INJ,STERILE 10 ML ONE (08:34)
[2019-06-18] MEDS: GUAIFENESIN 600 MG SA TAB PO SCH ×2 (08:36→21:42)
[2019-06-18] MEDS: FERROUS GLUCONATE 324 MG TAB PO SCH (08:36)
--- NOTE | 2019-06-18 09:13 | RAD REPORT ---
EXAM DESCRIPTION: Teresa Single View06/18/2019 8:27 am CLINICAL HISTORY: Cough COMPARISON: June 17, 2018 FINDINGS: Bibasilar opacities appear mostly resolved. Moderate hiatal hernia is present Upper lobes are clear. Heart is normal size IMPRESSION: Bibasilar opacities appear mostly resolved Moderate hiatal hernia
[2019-06-18] MEDS: ALBUTEROL 2.5 MG/3 ML NEB SOL NEB SCH ×3 (09:22→20:00)
[2019-06-18] MEDS: TRAZODONE 50 MG TABLET PO SCH (21:42)
[2019-06-18] MEDS: QUETIAPINE 100MG TAB PO SCH (21:42)
[2019-06-18] MEDS: SERTRALINE HCL 100 MG TAB PO SCH (21:43)
--- NOTE | 2019-06-18 22:22 | PN ---
Date of Progress Note: 06/18/2019 Subjective: Patient was seen this morning for followup, lying in bed, not in distress. Has some cou gh, chest congestion. Her was present with her at bedside. Appetite is fair. Objective: Vital Signs: Reviewed. HEENT: Unremarkable. Lungs: Bilateral good equal air entry. Presence of some rales noted in both lower lung bowling. Not using accessory muscles of respiration. Heart: Sounds normal. Abdomen: Soft. Bowel sounds normal. No guarding, rigidity, tenderness, distention. Extremities: No leg edema. Laboratory Data: Chest x-ray done today shows improvement in pneumonia. Impression: 1.Pneumonia. 2.Hypothyroidism. 3.Hypertension. Plan: Continue current medications, nebulizer treatment, which was ordered every 6 hours. Continue current antibiotics. I will see her tomorrow for followup. Possible discharge to go home tomorrow d epending on her condition. Continue Lovenox for DVT prophylaxis. TOBIAS/MODL Voice ID: [id number] Report ID: [id number]
[2019-06-19] MEDS: ALBUTEROL 2.5 MG/3 ML NEB SOL NEB SCH (05:25)
[2019-06-19 06:02] LABS: Absolute Lymphocytes (CBC) 1.1 K/uL (0.7-4.9); Basophils % 0.4 % (0-1.3); Lymphocytes % 23.2 % (15.3-44.8); MPV 7.9 fL (7.6-11.3); RBC Red Blood Cell Count 3.31 M/uL (3.86-4.86)
[2019-06-19 06:22] LABS: Magnesium 1.9 mg/dL (1.8-2.4); Potassium 3.8 mmol/L (3.5-5.1)
[2019-06-19 08:32] VITALS: BP 118/65; TEMP 97.1
[2019-06-19] MEDS: AZITHROMYCIN IV 250 MG in NA CHLORIDE 0.9% 250 ML IVPB SCH (09:00)
[2019-06-19] MEDS: CEFTRIAXONE/SWI 1gm 1 GM/10 ML SYR IV SCH (09:16)
[2019-06-19] MEDS: PANTOPRAZOLE 40 MG INJ IVP SCH (09:16)
[2019-06-19] MEDS: AMLODIPINE 5 MG TAB PO SCH (09:16)
[2019-06-19] MEDS: METOPROLOL XL 50 MG TAB PO SCH (09:17)
[2019-06-19] MEDS: GUAIFENESIN 600 MG SA TAB PO SCH (09:17)
[2019-06-19] MEDS: ENOXAPARIN 30 MG/0.3 ML SQ SCH (09:17)
[2019-06-19] MEDS: FERROUS GLUCONATE 324 MG TAB PO SCH (09:17)
[2019-06-19 10:05] VITALS: O2SAT 93
--- NOTE | 2019-06-20 00:26 | DS ---
Date of Discharge: 06/19/2019 Subjective: Patient was seen this morning for followup. No new complaints or problems reported by the patient. Her was present with her at bedside. Objective: Vital Signs: Reviewed. HEENT: Unremarkable. Lungs: Clear to auscultation. Heart: Sounds normal. Abdomen: Soft. Bowel sounds normal. No guarding, rigidity, tenderness, or distention. Extremities: No leg edema. Laboratory Data: Upon admission; white count 7.5, hemoglobin 11.5, platelets 134. Today; white count 4.6, hemoglobin 9.4, platelets 146. On admission; sodium 139, potassium 4.1, chloride 104, bicarb 30, BUN 21, creatinine 0.94, glucose 102. Liver function tests unremarkable. Troponin less than 0.02. Today; sodium 143, potassium 3.8, chloride 107, bicarb 30, BUN 11, creatinine 0.72, glucose 88. Hospital Course: This is an 88-year-old very pleasant female patient, admitted to the hospital with cough, congestion, fever. Please see dictated H and P for more information. After patient was evaluated in the ER, she was admitted to the hospital with pneumonia. She was started on IV ceftriaxone and IV azithromycin. Home medications were continued. DVT prophylaxis was given using Lovenox. She was also given nebulizer treatment using albuterol. Overall , her condition improved. Chest x-ray done 2 different times, the first repeat chest x-ray showed slight worsening of infiltrate and yesterday's chest x-ray shows almost complete clearing of the lung infiltrate. Clinically, she is doing much better. Her appetite has improved and today, she was discharged to go home in stable condition with following discharge medication instruction. Final Diagnoses: 1. Left lower lobe pneumonia. 2. Iron-deficiency anemia. 3. Thrombocytopenia. 4. Hypertension. 5. Hyperlipidemia. 6. Left-sided breast cancer. 7. Osteoarthritis, multiple sites. 8. Depression. Discharge Medications And Instructions: 1. Continue all prior home medication. 2. Azithromycin 250 mg p.o. daily for 4 days. 3. Cefuroxime 250 mg p.o. 2 times a day for 1 week. 4. Follow up at my office next week. TOBIAS/MODL Voice ID: [id number] Report ID: [id number] MAIN
== END 2019-06-19 10:20 | disposition home or self-care (01) | DRG 195 ==
LOC: ER 11:48 → ERHOLD 14:26 → 4TH 15:53
PROVIDERS: ADMIT Internal Medicine; ATTEND Internal Medicine
DX: J18.9 Pneumonia, unspecified organism (principal); D50.9 Iron deficiency anemia, unspecified; D69.6 Thrombocytopenia, unspecified; C50.912 Malignant neoplasm of unspecified site of left female breast; E78.5 Hyperlipidemia, unspecified; I10 Essential (primary) hypertension; M15.9 Polyosteoarthritis, unspecified; F32.9 Major depressive disorder, single episode, unspecified; E03.9 Hypothyroidism, unspecified
CPT/HCPCS: 36415; 71045; 80048; 80076; 82550; 82553; 83690; 83735; 83880; 84484; 85025; 85379; 85610; 85730; 87040; 87070; 87205; 93005; 94640; 94760; 96365; 96375; 99285; C9113; J0456; J0696; J1650; J2930; J7030